=== PATIENT | male | born 1960 | race Caucasian/White ===

== ENCOUNTER 2017-01-31 14:47 | Inpatient (IN) | payer BC ==
[2017-02-04] MEDS ORDERED: HYDROmorphONE/DILAUDID 4 MG TAB PO PRN ×2 (16:00→16:01)
[2017-02-04] MEDS ORDERED: HYDROmorphONE/DILAUDID 2 MG TAB PO PRN (16:28)
[2017-02-04] MEDS: GABAPENTIN 300 MG CAP PO SCH ×2 (16:31→21:07)
[2017-02-04] MEDS: FUROSEMIDE 40 MG TAB PO SCH (16:34)
--- NOTE | 2017-02-04 17:17 | PDOREHIP ---
Admission [facility] - Admission - 3 Day Assessment Period Admission Date/Day 1: 02/04/17 Day 2: 02/05/17 Day 3: 02/06/17 - Active Diagnoses Comorbidities and Co-existing Conditions at Admission: 95478. DM (e.g. diabetic retinopathy, nephropathy, and neuropathy) - Skin Conditions Unhealed Pressure Ulcer (1 or more/Stage 1 or >)-Admission: 0. No
--- NOTE | 2017-02-04 17:44 | GHP ---
[f rep st] HISTORY AND PHYSICAL POST ADMISSION PHYSICIAN EVALUATION AND REHABILITATION TREATMENT PLAN. DATE OF ADMISSION: 02/04/2017 DATE OF EVALUATION: 02/04/2017. TIME OF EVALUATION: 1535. REFERRING FACILITY: [facility]. IMPAIRMENT GROUP: [id number]. DATE OF ONSET: 01/28/2017. REFERRING PHYSICIAN: Dr. Leyva. CONSULTING PHYSICIANS: He had a consultation with the cardiology service, Candy Banegas, nurse practitioner and Dr. Estrada, spare person. REHABILITATION DIAGNOSIS: Debility status post bilateral total knee amputation. ETIOLOGIC DIAGNOSIS: Bilateral knee replacements. DATE OF SURGERY: 01/28/2017. HISTORY OF PRESENT ILLNESS: This patient is a 56-year-old obese male, who had bilateral total knee replacements on 01/28/2017 due to severe osteoarthritis with varus alignment. His postoperative course was complicated by hypoxia, hypotension, fluid resuscitation, supraventricular tachycardia and nocturnal hypoxia consistent with obstructive sleep apnea. STUDIES: There was an EKG which showed sinus tachycardia with Q-waves in III and aVF, but no acute ST abnormalities. Telemetry showed sinus tachycardia with brief episodes of supraventricular tachycardia versus atrial tachycardia. Echocardiogram showed right heart enlargement. Chest x-ray was unremarkable. LAB STUDIES: BMP yesterday showed an elevated BUN at 31, a normal creatinine at 1.14, glucose was quite elevated at 258 but this was in the afternoon and likely not fasting. Otherwise, renal function and electrolytes were within normal limits. Magnesium in the serum was normal at 2.0. Hemoglobin and hematocrit showed mild anemia at 11.5 and 35.1. PRECAUTIONS: He is a fall risk. ACTIVE COMORBIDITIES: He has the active comorbidity of morbid obesity. PAST MEDICAL HISTORY: 1. Arthritis. 2. Back pain. 3. Testicular cancer in 1994. 4. Diabetes mellitus type 2. 5. Dyslipidemia. 6. Hypertension. PAST SURGICAL HISTORY: 1. He has had an appendectomy. 2. Hernia repair on the right. 3. Spinal surgery for a synovial cyst in 2010. 4. Testicular surgery for cancer. 5. Tonsillectomy and uvulectomy in 2006. PRE-HOSPITAL MEDICATIONS: 1. Ascorbic acid up to 7000 mg daily. 2. Benazepril 40 mg p.o. daily. 3. Clonidine 0.1 mg p.o. daily. 4. Green coffee solitario daily p.r.n. 5. Hydromorphone 8 mg p.o. q.4 hours p.r.n. 6. Hydromorphone extended release 16 mg p.o. twice daily. 7. Magnesium carbonate 1200 mg p.o. daily. 8. Metformin 1000 mg p.o. twice daily. 9. Vitamin B complex daily. 10. Atorvastatin 40 mg p.o. daily. 11. Clotrimazole 1% cream twice daily. 12. Furosemide 40 mg p.o. twice daily. 13. Gabapentin 300 mg p.o. three times daily. 14. Ibuprofen 800 mg three times daily. 15. Methocarbamol 750 mg q.8 hours p.r.n. 16. Metoprolol 50 mg p.o. twice daily. 17. Oxycodone 5 mg 1-3 tablets q.4 hours p.r.n. 18. Polyethylene glycol 17 g p.o. daily. 19. Rivaroxaban 10 mg p.o. daily. 20. Senna/docusate twice daily. ADMISSION MEDICATIONS: Are the same. ALLERGIES: There are no known drug allergies. FAMILY HISTORY: There were heart disease in his mother and father. SOCIAL HISTORY: He is . He lives with his . He has 2 adult children who are no longer in the house. 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 He is a nonsmoker but he chews tobacco. He does not use alcohol but has a history of alcohol abuse and dependence of approximately 20 years ago. REVIEW OF SYSTEMS: He says that his pain in his knees is approximately 7/10, which is better than it had been. He requests an increase in his p.r.n. hydromorphone from 8 mg to 10 mg. He feels he sleeps well. He is aware of his history of sleep apnea. He says that if he sleeps on his side, he does not snore and does not have apneas that he knows of, but since his surgery he has been unable to sleep on his side. Otherwise, he is without any respiratory complaints. He denies cough or dyspnea. His bowels are moving. He has a decent appetite. He has swelling in his legs. This has been ongoing since prior to his surgery. He has no chest pain. He does not have palpitations anymore and otherwise a 10-point review of systems is negative. PHYSICAL EXAMINATION: VITAL SIGNS: Vitals are not yet available in the chart. This morning, his oxygen saturation was at 90% on 5 L. Blood pressure was 137 /70, heart rate was 98, respiratory rate was 20, temperature was 36.6 degrees centigrade. His weight was listed twice from 01/28/2017. Once at 140 kg, and once at 156 kg for a body mass index with a higher weight is in the 40s. GENERAL: This is a well-nourished, well-developed, obese man lying in bed, dressed in street clothes, cooperative and in no acute distress. HEENT: Extraocular movements are intact. Pupils are equal, round, reactive to light. Mucous members are moist. Dentition is in good condition. He has a crowded airway, Mallampati class 3; however, he has no uvula or tonsils either in. NECK : Supple. HEART: There is a regular rate and rhythm with no murmurs, rubs, or gallops. LUNGS: Clear to auscultation bilaterally. ABDOMEN: Soft, nontender, nondistended with normoactive bowel sounds and no hepatosplenomegaly. EXTREMITIES: There is no cyanosis or clubbing. He has brawny discoloration to his shins. He has 2 to 3+ edema bilaterally to his lower extremities. Pedal pulses are palpable at trace. There is no calf tenderness. SKIN: He has well-approximated surgical incisions over both knees with alba. Incisions are clean, dry and intact with no dehiscence, no erythema and no purulence. NEUROLOGIC: He is alert and oriented x3. Cranial nerves 2-12 are grossly intact. There is no focal weakness. Sensation is intact to light touch. He is able to arise from seated independently, though he has to log roll to his side and then use considerable assistance of his arms , including using the bed rail to arise. He is able to subsequently stand independently. CURRENT LEVEL OF FUNCTION: Per the pre-admission screen. Regarding diet, feeding, and swallowing, e is on a regular diet. For grooming, he needed some assistance. For bathing, he needed assistance. For dressing, he needed assistance. Toileting was done with minimal assistance to contact guard for transfers. He had a Pyle catheter when he was assessed but no longer has that. Bed mobility required moderate assistance with use of side rails and head of bed elevated, and total assistance for his bilateral lower extremities, though his bed mobility has improved considerably since then. For transfers, he needed moderate assistance with voice cuing for hand placement. He was using a front-wheeled walker. Balance was accomplished with contact guard to min assist. Endurance was fair. Regarding gait, he required minimal assistance with partial step through bilaterally with a wide base of support using a front-wheeled walker for 80 feet. Communication and cognition were within normal limits. IMPRESSION: This is a 56-year-old man with morbid obesity complicated by diabetes mellitus, dyslipidemia, and hypertension, who had severe degenerative joint disease bilaterally in his knees and underwent bilateral total knee replacements on 01/28/2017. His hospital course was complicated by pain, hypotension, fluid overload, hypoxia and supraventricular tachycardia. Evaluation revealed an enlarged right heart. The surgery itself was uncomplicated and he has subsequently stabilized regarding his cardiovascular status and is appropriate for inpatient rehabilitation, with considerable debility due to his bilateral knee replacements complicated by obesity. He is appropriate for inpatient rehabilitation where he will benefit from nursing care regarding fall risk, wound healing and skin integrity, bowel and bladder, medication administration and medication education. He will have physical and occupational therapy to optimize his mobility and activities of daily living. He will benefit from the care of physician regarding comorbid conditions including hypoxia, supraventricular tachycardia, diabetes mellitus type 2, hypertension and bilateral lower extremity edema. Additionally, he needs DVT prophylaxis and pain management. His goal is to complete rehabilitation and then return home with his and supportive services as needed. He intends to return to work which necessitates stair climbing. For a safe discharge, it is anticipated that he will be independent with bed mobility and grooming, modified independence for transfers , dressing, bathing, and ambulation with the at least restrictive device. He likely will require assistance for household management and shopping. He will receive therapy with physical therapy and occupational therapy for 90 minutes per day per discipline on 5-7 days per week. His expected duration of stay is 5-7 days. It is anticipated that upon discharge he will continue to benefit from outpatient therapies including OT and PT. PLAN: 1. Debility, status post bilateral total knee arthroplasties complicated by obesity. Physical therapy and occupational therapy to optimize mobility and activities of daily living. 2. Hypoxia. Continue oxygen. Emphasize incentive spirometry. Consider further evaluation depending on how he progresses. 3. Obstructive sleep apnea. It is not unlikely that he would not be obstructing if he could sleep on his side. In the interim, he will bring his CPAP in which he has not used for a number of years, and we will have respiratory therapy meet with him to see if it can be made operational. 4. Supraventricular tachycardia, hypothesized that it was related to episodes of sleep apnea. He will have oxygen at night. He will be observed for any cardiac symptoms. No further workup will be done at present. 5. Fluid overload and possible right heart failure. Continue furosemide. Weight daily and monitoring regarding edema and cardiac function. Edema may also be partially due to venous insufficiency. 6. Hypertension. Continue his current medication with clonidine 0.1 mg twice daily, benazepril 40 mg daily, and metoprolol 50 mg twice daily. 7. Pain management. He requests an increase in his hydromorphone from 8 mg p.o. q.4 hours p.r.n. to 10 mg p.o. q.4 hours p.r.n., and this has been ordered. Continue hydromorphone extended release 16 mg twice daily. 8. Diabetes mellitus type 2. Continue metformin 1000 mg p.o. twice daily. Consider checking fasting glucose. The 1 glucose from the hospital which was elevated was in the afternoon and was likely not fasting. 9. Dyslipidemia continue atorvastatin. 10. Deep venous thrombosis prophylaxis. Rivaroxaban has been ordered at the hospital. 11. Followup. He is to see orthopedic surgeon, Dr. Leyva on 02/10/2017 where alba will be assessed for removal and it will be up to Dr. Leyva regarding duration of rivaroxaban. /[id number]/MODL MTDD
[2017-02-04] MEDS: metFORMIN HCL 500 MG TAB PO SCH (18:33)
[2017-02-04] MEDS ORDERED: NALOXONE HCL 0.4 MG/ML INJ IVP PRN (19:44)
[2017-02-04] MEDS: METHOCARBAMOL 750 MG TAB PO PRN (19:45)
[2017-02-04] MEDS ORDERED: HYDROMORPHONE HCL 16 MG PO SCH (21:00)
[2017-02-04] MEDS: SENNOSIDES/DOCUSATE SODIUM TAB PO SCH (21:06)
[2017-02-04] MEDS: METOPROLOL TARTRATE 50 MG TAB PO SCH (21:06)
[2017-02-04] MEDS: HYDROmorphONE/DILAUDID 2 MG TAB PO PRN (21:16)
[2017-02-04] MEDS: CLOTRIMAZOLE 1% 15 GM CRTUBE TP SCH (21:18)
[2017-02-05] MEDS: HYDROmorphONE/DILAUDID 2 MG TAB PO PRN ×5 (01:03→22:02)
[2017-02-05] MEDS: METHOCARBAMOL 750 MG TAB PO PRN ×2 (03:41→20:53)
[2017-02-05] MEDS ORDERED: ASCORBIC ACID 500 MG TAB PO SCH (09:00)
[2017-02-05] MEDS ORDERED: MAGNESIUM CARBONATE PO SCH (09:00)
[2017-02-05] MEDS: ASCORBIC ACID 500 MG TAB PO SCH (09:17)
[2017-02-05] MEDS: ATORVASTATIN CALCIUM 40 MG TAB PO SCH (09:17)
[2017-02-05] MEDS: BENAZEPRIL HCL 20 MG TAB PO SCH (09:17)
[2017-02-05] MEDS: CLOTRIMAZOLE 1% 15 GM CRTUBE TP SCH ×2 (09:18→20:56)
[2017-02-05] MEDS: MAGNESIUM OXIDE 400 MG TAB PO SCH (09:19)
[2017-02-05] MEDS: HYDROMORPHONE HCL 16 MG PO SCH ×2 (09:19→20:52)
[2017-02-05] MEDS: FUROSEMIDE 40 MG TAB PO SCH ×2 (09:19→14:40)
[2017-02-05] MEDS: GABAPENTIN 300 MG CAP PO SCH ×3 (09:19→20:53)
[2017-02-05] MEDS: POLYETHYLENE GLYCOL 3350 17 GM PKT PO SCH (09:20)
[2017-02-05] MEDS: METOPROLOL TARTRATE 50 MG TAB PO SCH (09:20)
[2017-02-05] MEDS: metFORMIN HCL 500 MG TAB PO SCH ×2 (09:20→17:52)
[2017-02-05] MEDS: RIVAROXABAN 10 MG TAB PO SCH (09:21)
[2017-02-05] MEDS: SENNOSIDES/DOCUSATE SODIUM TAB PO SCH ×2 (09:21→20:53)
[2017-02-05] MEDS ORDERED: METOPROLOL TARTRATE 50 MG TAB PO SCH (11:09)
--- NOTE | 2017-02-05 11:16 | HOSPPROG ---
Hospitalist Progress Note Assessment/Plan: 56-year-old male status post bilateral knee replacements due to severe osteo arthritis * status post bilateral knee replacements * Getting PT and OT * postoperative SVT * I suspect the beta-laverne was placed due to this. * He does have enlarged right-sided heart and probably pulmonary hypertension due to chronic obstructive sleep apnea * However the side effects of beta laverne seems would interfere with rehab progress due to severe fatigue * He had been stable prior to surgery which probably precipitated the SVT * Will thus decrease beta-laverne to minimal dosage and could taper off in the next few days * history of hypertension * Continue benazepril and clonidine * obstructive sleep apnea * Hopefully will be able to use CPAP tonight * Respiratory therapy will look at his machine * chronic pain * On fairly high doses of narcotics at baseline * Probably contributing to nocturnal hypoxia * history of type 2 diabetes * Continue metformin * DVT prophylaxis * He is high risk * On Xarelto Subjective: Frustrated that he is on a beta-laverne. He feels quite tired when he has taken beta blockers in the past. His legs do feel more swollen than normal. He does not want to increase Lasix. Did not use CPAP last night. Will get CPAP machine reviewed by respiratory today Objective: Vital Signs Temp Pulse Resp BP Pulse Ox 37.0 C 106 H 20 125/89 H 97 02/04/17 20:00 02/05/17 09:20 02/05/17 06:47 02/05/17 09:20 02/05/17 06:47 02/04/17 02/05/17 02/06/17 05:59 05:59 05:59 Intake Total 1200 Output Total 1550 Balance -350 - Physical Exam Constitutional: no apparent distress, appears nourished, not in pain Eyes: anicteric sclera, EOMI Ears, Nose, Mouth, Throat: hearing normal Cardiovascular: regular rate and rhythym, edema (2+) Respiratory: no respiratory distress, no rales or rhonchi, clear to auscultation Skin: other (Chronic venous stasis changes lower leg) Neurologic: AAOx3 Psychiatric: interacting appropriately, not anxious, not encephalopathic, thought process linear ICD10 Worksheet Patient Problems: Problems Problem Status Onset ROBERTO (obstructive sleep apnea) Acute S/P total knee arthroplasty Acute
[2017-02-05] MEDS: METOPROLOL TARTRATE 25 MG TAB PO SCH (20:53)
[2017-02-06] MEDS: HYDROmorphONE/DILAUDID 2 MG TAB PO PRN ×5 (01:58→22:33)
[2017-02-06] MEDS: METHOCARBAMOL 750 MG TAB PO PRN ×3 (05:03→22:31)
[2017-02-06] MEDS: metFORMIN HCL 500 MG TAB PO SCH ×2 (08:32→17:09)
[2017-02-06] MEDS: ASCORBIC ACID 500 MG TAB PO SCH (08:33)
[2017-02-06] MEDS: ATORVASTATIN CALCIUM 40 MG TAB PO SCH (08:33)
[2017-02-06] MEDS: BENAZEPRIL HCL 20 MG TAB PO SCH (08:34)
[2017-02-06] MEDS: FUROSEMIDE 40 MG TAB PO SCH ×2 (08:35→14:27)
[2017-02-06] MEDS: GABAPENTIN 300 MG CAP PO SCH ×3 (08:35→22:21)
[2017-02-06] MEDS: CLOTRIMAZOLE 1% 15 GM CRTUBE TP SCH ×3 (08:35→22:24)
[2017-02-06] MEDS: MAGNESIUM OXIDE 400 MG TAB PO SCH (08:36)
[2017-02-06] MEDS: METOPROLOL TARTRATE 25 MG TAB PO SCH ×2 (08:36→22:22)
[2017-02-06] MEDS: SENNOSIDES/DOCUSATE SODIUM TAB PO SCH ×2 (08:37→22:21)
[2017-02-06] MEDS: RIVAROXABAN 10 MG TAB PO SCH (08:37)
[2017-02-06] MEDS: POLYETHYLENE GLYCOL 3350 17 GM PKT PO SCH (08:37)
[2017-02-06] MEDS: HYDROMORPHONE HCL 16 MG PO SCH ×2 (08:46→22:20)
--- NOTE | 2017-02-06 13:58 | SOAPPROG ---
SOAP Progress Note Assessment/Plan: 56-year-old male status post bilateral knee replacements due to severe osteo arthritis * status post bilateral knee replacements * Getting PT and OT * postoperative SVT * I suspect the beta-laverne was placed due to this. * He does have enlarged right-sided heart and probably pulmonary hypertension due to chronic obstructive sleep apnea * However the side effects of beta laverne seems would interfere with rehab progress due to severe fatigue * He had been stable prior to surgery which probably precipitated the SVT * Decrease metoprolol to 12.5 mg twice daily from 50 mg twice daily on 02/05 - continue with lower dose and watch heart rate. Although he does have slight tachycardia this is not SVT * history of hypertension * Will decrease bezapril a little bit as his blood pressures on the low side and he feels like it is making more fatigued * Continue clonidine * obstructive sleep apnea * Hopefully will be able to use CPAP tonight * Respiratory therapy will look at his machine to perhaps decrease the pressure since that sing was determined before he had tonsillar in uvula surgery * chronic pain * On fairly high doses of narcotics at baseline * Probably contributing to nocturnal hypoxia * history of type 2 diabetes * Continue metformin * DVT prophylaxis * He is high risk * On Xarelto 02/06/17 13:56 Subjective: Was unable to tolerate CPAP last night for more than a couple hours. Does feel tired but no other new complaints Objective: Vital Signs Temp Pulse Resp BP Pulse Ox 37.2 C 94 16 118/68 2 L 02/06/17 09:00 02/06/17 09:00 02/06/17 09:00 02/06/17 09:00 02/06/17 09:00 02/05/17 02/06/17 02/07/17 05:59 05:59 05:59 Intake Total 1200 3670 520 Output Total 1550 1600 Balance -350 2070 520 Physical Exam - Physical Exam General Appearance: WD/WN, alert, no apparent distress EENT: PERRL/EOMI Respiratory: lungs clear Cardiac/Chest: regular rate, rhythm, tachycardia (Slight) Extremities: other (Wrap legs) Neuro/Psych: alert, normal mood/affect, oriented x 3 ICD10 Worksheet Patient Problems: Problems Problem Status Onset ROBERTO (obstructive sleep apnea) Acute S/P total knee arthroplasty Acute
[2017-02-07] MEDS: POLYETHYLENE GLYCOL 3350 17 GM PKT PO SCH (07:48)
[2017-02-07] MEDS: ASCORBIC ACID 500 MG TAB PO SCH (07:49)
[2017-02-07] MEDS: MAGNESIUM OXIDE 400 MG TAB PO SCH (07:49)
[2017-02-07] MEDS: RIVAROXABAN 10 MG TAB PO SCH (07:49)
[2017-02-07] MEDS: SENNOSIDES/DOCUSATE SODIUM TAB PO SCH ×2 (07:49→22:03)
[2017-02-07] MEDS: GABAPENTIN 300 MG CAP PO SCH ×3 (07:50→22:03)
[2017-02-07] MEDS: metFORMIN HCL 500 MG TAB PO SCH ×2 (07:50→16:59)
[2017-02-07] MEDS: ATORVASTATIN CALCIUM 40 MG TAB PO SCH (07:50)
[2017-02-07] MEDS: BENAZEPRIL HCL 20 MG TAB PO SCH (07:50)
[2017-02-07] MEDS: METOPROLOL TARTRATE 25 MG TAB PO SCH ×2 (07:50→22:24)
[2017-02-07] MEDS: FUROSEMIDE 40 MG TAB PO SCH ×2 (07:50→16:04)
[2017-02-07] MEDS: HYDROMORPHONE HCL 16 MG PO SCH ×2 (08:13→22:02)
[2017-02-07] MEDS: HYDROmorphONE/DILAUDID 2 MG TAB PO PRN ×3 (08:14→22:04)
[2017-02-07 10:01] LABS: ANION GAP 10 mEq/L (8-16); CALCIUM 9.4 mg/dL (8.5-10.4); CARBON DIOXIDE 31 mEq/l (22-31); CHLORIDE 94 mEq/L (97-110); GLOMERULAR FILTRATION RATE > 60; GLUCOSE 213 mg/dL (70-100); POTASSIUM 5.5 mEq/L (3.5-5.2); SODIUM 135 mEq/L (134-144)
--- NOTE | 2017-02-07 11:12 | SOAPPROG ---
SOAP Progress Note Assessment/Plan: Assessment: 56-year-old male status post bilateral knee replacements due to severe osteo arthritis * status post bilateral knee replacements * ADVISED PATIENT AND NURSING TO UNWRAP LEGS 3-4 TIMES PER DAY TO ALLOW PATIENT TO FLEX KNEE TO 100 DEGREES. Brenda asked his physical THERAPIST TO CLEAR HIM TO STAND BEDSIDE FOR 5-10 MINUTES PER HOUR IF SHE FEELS HE IS READY, WHICH HE APPEARS TO BE. * postoperative SVT * I suspect the beta-laverne was placed due to this. * He does have enlarged right-sided heart and probably pulmonary hypertension due to chronic obstructive sleep apnea * However the side effects of beta laverne seems would interfere with rehab progress due to severe fatigue * He had been stable prior to surgery which probably precipitated the SVT * Decrease metoprolol to 12.5 mg twice daily from 50 mg twice daily on 02/05 - continue with lower dose and watch heart rate. Although he does have slight tachycardia this is not SVT * history of hypertension * BP this am 113/84- WOULD CONSIDER D/CING METOPROLOL ON THURSDAY IF DR LANDAVERDE AGREES * Continue clonidine * obstructive sleep apnea * Hopefully will be able to use CPAP tonight * Respiratory therapy will look at his machine to perhaps decrease the pressure since that sing was determined before he had tonsillar in uvula surgery * chronic pain * On fairly high doses of narcotics at baseline * Probably contributing to nocturnal hypoxia * history of type 2 diabetes- BLOOD SUGARS TRENDING SLIGHTLY ELEVATED--DIETARY TO D/W PATIENT * Continue metformin * DVT prophylaxis- * On Xarelto Plan: 02/07/17 11:05 Subjective: NO C/O THIS AM Objective: Vital Signs Temp Pulse Resp BP Pulse Ox 36.9 C 90 16 113/84 H 94 02/07/17 06:42 02/07/17 06:42 02/07/17 06:42 02/07/17 06:42 02/07/17 06:42 Laboratory Results 02/07/17 06:30 02/06/17 02/07/17 02/08/17 05:59 05:59 05:59 Intake Total 3670 2700 Output Total 1600 Balance 2070 2700 Physical Exam - Physical Exam General Appearance: WD/WN, alert, no apparent distress Respiratory: lungs clear Cardiac/Chest: regular rate, rhythm, other (+1 PITTING EDEMA BOTH LOWER EXTREMITIES) Abdomen: normal bowel sounds, non-tender, soft Skin: normal color, warm/dry Extremities: other (RIGHT AND LEFT KNEE FLEXION TO 85 DEGREES, BUT MOTION IS LIMITED BY MONALISA WRAPS), No calf tenderness, No Bisi's sign ICD10 Worksheet Patient Problems: Problems Problem Status Onset ROBERTO (obstructive sleep apnea) Acute S/P total knee arthroplasty Acute
[2017-02-07] MEDS: CLOTRIMAZOLE 1% 15 GM CRTUBE TP SCH ×2 (12:40→22:26)
[2017-02-07] MEDS: METHOCARBAMOL 750 MG TAB PO PRN ×2 (16:03→23:54)
[2017-02-08] MEDS: HYDROmorphONE/DILAUDID 2 MG TAB PO PRN ×4 (04:25→19:42)
[2017-02-08] MEDS: metFORMIN HCL 500 MG TAB PO SCH ×2 (08:06→18:28)
[2017-02-08] MEDS: BENAZEPRIL HCL 20 MG TAB PO SCH (08:06)
[2017-02-08] MEDS: RIVAROXABAN 10 MG TAB PO SCH (08:06)
[2017-02-08] MEDS: FUROSEMIDE 40 MG TAB PO SCH ×2 (08:06→15:44)
[2017-02-08] MEDS: GABAPENTIN 300 MG CAP PO SCH ×3 (08:06→21:59)
[2017-02-08] MEDS: ATORVASTATIN CALCIUM 40 MG TAB PO SCH (08:07)
[2017-02-08] MEDS: MAGNESIUM OXIDE 400 MG TAB PO SCH (08:07)
[2017-02-08] MEDS: METOPROLOL TARTRATE 25 MG TAB PO SCH ×2 (08:07→21:58)
[2017-02-08] MEDS: ASCORBIC ACID 500 MG TAB PO SCH (08:07)
[2017-02-08] MEDS: SENNOSIDES/DOCUSATE SODIUM TAB PO SCH ×2 (08:07→21:58)
[2017-02-08] MEDS: POLYETHYLENE GLYCOL 3350 17 GM PKT PO SCH (08:08)
[2017-02-08] MEDS: CLOTRIMAZOLE 1% 15 GM CRTUBE TP SCH ×2 (08:08→23:42)
[2017-02-08] MEDS: METHOCARBAMOL 750 MG TAB PO PRN ×2 (08:10→15:44)
[2017-02-08 08:30] LABS: ANION GAP 9 mEq/L (8-16); CALCIUM 9.3 mg/dL (8.5-10.4); CARBON DIOXIDE 28 mEq/l (22-31); CHLORIDE 96 mEq/L (97-110); CREATININE 0.9 mg/dL (0.7-1.3); GLOMERULAR FILTRATION RATE > 60; GLUCOSE 239 mg/dL (70-100); POTASSIUM 5.3 mEq/L (3.5-5.2); SODIUM 133 mEq/L (134-144)
--- NOTE | 2017-02-08 10:08 | SOAPPROG ---
SOAP Progress Note Assessment/Plan: Assessment: 56-year-old male status post bilateral knee replacements due to severe osteo arthritis * status post bilateral knee replacements * ADVISED PATIENT AND NURSING TO UNWRAP LEGS 3-4 TIMES PER DAY TO ALLOW PATIENT TO FLEX KNEE TO 100 DEGREES. He has increased his standing times bedside * postoperative SVT * Resting pulse this am was 100. On metoprolol 12.5 bid * history of hypertension * Continue clonidine * obstructive sleep apnea * Hopefully will be able to use CPAP tonight * Respiratory therapy will look at his machine to perhaps decrease the pressure since that sing was determined before he had tonsillar in uvula surgery * chronic pain * On fairly high doses of narcotics at baseline- RECOMMEND NEUROPYSCH CONSULT TO ADDRESS OPIOID DEPENDENCE * Probably contributing to nocturnal hypoxia * history of type 2 diabetes- BLOOD SUGARS TRENDING SLIGHTLY ELEVATED--DIETARY TO D/W PATIENT * Continue metformin * DVT prophylaxis- * On Xarelto Plan: 02/07/17 11:05 02/08/17 10:02 Subjective: No c/o this am Objective: Vital Signs Temp Pulse Resp BP Pulse Ox 37.1 C 117 H 16 132/72 H 94 02/07/17 18:20 02/07/17 22:24 02/07/17 18:20 02/07/17 22:24 02/07/17 22:16 Laboratory Results 02/08/17 06:00 02/07/17 02/08/17 02/09/17 05:59 05:59 05:59 Intake Total 2700 2800 Output Total 1650 Balance 2700 1150 Physical Exam - Physical Exam General Appearance: WD/WN, alert, no apparent distress Respiratory: lungs clear, normal breath sounds Cardiac/Chest: edema (+1-2 pitting), No JVD, No diastolic murmur, No systolic murmur Abdomen: non-tender, soft Skin: other (chronic stasis edema changes. Knee incisions look good without erythema or drainage) Extremities: No Bisi's sign ICD10 Worksheet Patient Problems: Problems Problem Status Onset ROBERTO (obstructive sleep apnea) Acute S/P total knee arthroplasty Acute
[2017-02-08] MEDS: HYDROMORPHONE HCL 16 MG PO SCH ×2 (10:52→22:00)
[2017-02-09] MEDS: METHOCARBAMOL 750 MG TAB PO PRN ×3 (00:23→17:15)
[2017-02-09] MEDS: HYDROmorphONE/DILAUDID 2 MG TAB PO PRN ×6 (02:31→21:23)
[2017-02-09] MEDS: POLYETHYLENE GLYCOL 3350 17 GM PKT PO SCH (09:00)
[2017-02-09] MEDS: ASCORBIC ACID 500 MG TAB PO SCH (09:18)
[2017-02-09] MEDS: BENAZEPRIL HCL 20 MG TAB PO SCH (09:19)
[2017-02-09] MEDS: ATORVASTATIN CALCIUM 40 MG TAB PO SCH (09:19)
[2017-02-09] MEDS: FUROSEMIDE 40 MG TAB PO SCH (09:23)
[2017-02-09] MEDS: GABAPENTIN 300 MG CAP PO SCH ×3 (09:23→20:49)
[2017-02-09] MEDS: CLOTRIMAZOLE 1% 15 GM CRTUBE TP SCH ×2 (09:23→23:50)
[2017-02-09] MEDS: HYDROMORPHONE HCL 16 MG PO SCH ×2 (09:24→21:22)
[2017-02-09] MEDS: MAGNESIUM OXIDE 400 MG TAB PO SCH (09:24)
[2017-02-09] MEDS: METOPROLOL TARTRATE 25 MG TAB PO SCH ×2 (09:25→21:05)
[2017-02-09] MEDS: RIVAROXABAN 10 MG TAB PO SCH (09:25)
[2017-02-09] MEDS: metFORMIN HCL 500 MG TAB PO SCH ×2 (09:25→17:13)
[2017-02-09] MEDS: SENNOSIDES/DOCUSATE SODIUM TAB PO SCH ×2 (09:25→21:29)
--- NOTE | 2017-02-09 09:43 | SOAPPROG ---
SOAP Progress Note Assessment/Plan: Assessment: 56-year-old morbidly obese man status post bilateral knee replacements, with untreated sleep apnea and right heart strain: * Debility, status post bilateral total knee arthroplasties complicated by obesity. Initial functional independence measure 89 on 02/09/2017. He has ambulated 80-150 feet with front wheeled walker needing much as 3 L of oxygen. Standby assist for transfers and bed mobility low activity tolerance and shortness of breath with walking. Occasional loss of balance backwards. Standby assist for toileting and showering. Continue Physical therapy and occupational therapy to optimize mobility and activities of daily living. * Hypoxia. Continue oxygen PRN hospital evaluation included CT angiogram with pulmonary embolus ruled out and echocardiogram with enlarged right heart. Has orthostatic hypotension so not a candidate for diuresis at present. Emphasize incentive spirometry. Consider further evaluation depending on how he progresses. * Obstructive sleep apnea. Respiratory therapy is continue efforts to find a CPAP which she can tolerate. * Hypertension. Continue clonidine 0.1 mg twice daily, benazepril 40 mg daily; metoprolol has been tapered from 50 mg twice daily to 12.5 mg twice daily * Orthostatic hypotension. Nursing and therapy staff to continue working with him on orthostatic tolerance. Consider taper of benazepril. * Fluid overload and possible right heart failure. With orthostatic hypotension , will decrease furosemide from 40 mg BID to 40 mg QAM and 20 mg QPM starting .. Continue weight daily and monitoring regarding edema and cardiac function. Edema may also be partially due to venous insufficiency. * Supraventricular tachycardia, hypothesized that it was related to episodes of sleep apnea. He will have oxygen at night. He will be observed for any cardiac symptoms. No further workup will be done at present. * Pain management. Per his request further increase in hydromorphone from 10 mg to 12 mg as maximal dose starting 02/09/2017. Continue hydromorphone extended release 16 mg twice daily. * Diabetes mellitus type 2. Continue metformin 1000 mg p.o. twice daily. Blood sugar is elevated. Discussed with patient: Will start exenatide if insurance will cover. * Dyslipidemia continue atorvastatin. * Deep venous thrombosis prophylaxis. Rivaroxaban has been ordered at the hospital. * Followup. He is to see orthopedic surgeon, Dr. Leyva on 02/10/2017 where alba will be assessed for removal and it will be up to Dr. Leyva regarding duration of rivaroxaban. Attended staffing, 15 min. Discussed with nursing, dietitian, OT, PT. Lives at home with his and plans to return to work. Goal to discharge with modified independence continuing to use assistive device most likely front wheeled walker. Discharge date set for 02/13/2017. 02/09/17 13:32 Subjective: Complains of poor sleep. Can tolerate CPAP for up to 2 0.5 hours at the most. Nurse reports that respiratory therapist bambi ROM be commented that the pressure should be set lower but he didn't know how to adjust the pressure on that CPAP machine. Patient reports that this morning for the 1st time he was able to lie on his side within the with a pillow between his knees and got a few hours of sleep that way. He has bilateral knee pain and would like a higher dose of as needed hydromorphone. No fevers, chills, dyspnea; occasional cough. Bowels moving. No urinary issues. Objective: Vital Signs Temp Pulse Resp BP Pulse Ox 37.6 C 102 H 20 138/64 H 93 02/09/17 06:29 02/09/17 09:25 02/09/17 06:29 02/09/17 09:25 02/09/17 06:29 Laboratory Results 02/08/17 06:00 02/08/17 02/09/17 02/10/17 05:59 05:59 05:59 Intake Total 2800 1500 Output Total 1650 2000 325 Balance 1150 500 325 - Time Spent With Patient Time Spent With Patient: Greater than 35 minutes floor time today, including more than 50% of time in coordination of care during staffing meeting, and counseling patient. Physical Exam - Physical Exam General Appearance: WD/WN, alert, no apparent distress, obese Respiratory: normal breath sounds, No crackles, No rhonchi, No wheezing Cardiac/Chest: regular rate, rhythm, edema (2+ bilaterally pretibial edema) Skin: normal color, warm/dry, other (Knee incisions well approximated, no erythema or purulence) Neuro/Psych: no motor/sensory deficits, alert, normal mood/affect, oriented x 3 , abnormal gait (Step 2 pattern with longer stride with left leg swing) ICD10 Worksheet Patient Problems: Problems Problem Status Onset ROBERTO (obstructive sleep apnea) Acute S/P total knee arthroplasty Acute
[2017-02-09] MEDS: FUROSEMIDE 20 MG TAB PO SCH (15:11)
[2017-02-10] MEDS: METHOCARBAMOL 750 MG TAB PO PRN ×3 (02:28→20:56)
[2017-02-10] MEDS: HYDROmorphONE/DILAUDID 2 MG TAB PO PRN ×5 (02:28→20:56)
[2017-02-10] MEDS: ASCORBIC ACID 500 MG TAB PO SCH (08:20)
[2017-02-10] MEDS: ATORVASTATIN CALCIUM 40 MG TAB PO SCH (08:20)
[2017-02-10] MEDS: BENAZEPRIL HCL 20 MG TAB PO SCH (08:20)
[2017-02-10] MEDS: FUROSEMIDE 40 MG TAB PO SCH (08:21)
[2017-02-10] MEDS: GABAPENTIN 300 MG CAP PO SCH ×3 (08:21→21:13)
[2017-02-10] MEDS: MAGNESIUM OXIDE 400 MG TAB PO SCH (08:22)
[2017-02-10] MEDS: metFORMIN HCL 500 MG TAB PO SCH ×2 (08:22→17:37)
[2017-02-10] MEDS: HYDROMORPHONE HCL 16 MG PO SCH ×2 (08:22→21:11)
[2017-02-10] MEDS: METOPROLOL TARTRATE 25 MG TAB PO SCH ×2 (08:22→21:12)
[2017-02-10] MEDS: POLYETHYLENE GLYCOL 3350 17 GM PKT PO SCH ×2 (08:23→10:15)
[2017-02-10] MEDS: RIVAROXABAN 10 MG TAB PO SCH (08:23)
[2017-02-10] MEDS: SENNOSIDES/DOCUSATE SODIUM TAB PO SCH ×2 (08:23→21:53)
[2017-02-10] MEDS: CLOTRIMAZOLE 1% 15 GM CRTUBE TP SCH ×2 (09:19→21:52)
--- NOTE | 2017-02-10 11:30 | SOAPPROG ---
SOAP Progress Note Assessment/Plan: Assessment: 56-year-old morbidly obese man status post bilateral knee replacements, with untreated sleep apnea and right heart strain: * Debility, status post bilateral total knee arthroplasties complicated by obesity. Initial functional independence measure 89 on 02/09/2017. He has ambulated 80-150 feet with front wheeled walker needing much as 3 L of oxygen. Standby assist for transfers and bed mobility low activity tolerance and shortness of breath with walking. Occasional loss of balance backwards. Standby assist for toileting and showering. Continue Physical therapy and occupational therapy to optimize mobility and activities of daily living. * Hypoxia. Continue oxygen PRN. Hospital evaluation included CT angiogram with pulmonary embolus ruled out and echocardiogram with enlarged right heart. Has orthostatic hypotension so not a candidate for more diuresis at present. Emphasize incentive spirometry. Consider further evaluation depending on how he progresses. * Obstructive sleep apnea. Tolerating replaced CPAP last night, 02/09/2017. Encouraged continued use. * Hypertension. Continue clonidine 0.1 mg twice daily, benazepril 20 mg daily; metoprolol has been tapered from 50 mg twice daily to 12.5 mg twice daily * Orthostatic hypotension. Nursing and therapy staff to continue working with him on orthostatic tolerance. * Fluid overload and possible right heart failure. With orthostatic hypotension , will decrease furosemide from 40 mg BID to 40 mg QAM and 20 mg QPM starting .. Continue weight daily and monitoring regarding edema and cardiac function. Edema may also be partially due to venous insufficiency. Expect gradual benefit from use of CPAP * Hyperkalemia, hyponatremia. Unclear etiology with intact renal function. Repeat BMP in the morning as well as urinary urine and sodium osmolalities and urine sodium and potassium. Check fasting cortisol as well especially given orthostatic hypotension. * Supraventricular tachycardia, hypothesized that it was related to episodes of sleep apnea. He will have oxygen at night. He will be observed for any cardiac symptoms. No further workup will be done at present. * Pain management. Per his request further increase in hydromorphone from 10 mg to 12 mg as maximal dose starting 02/09/2017. Continue hydromorphone extended release 16 mg twice daily. * Diabetes mellitus type 2. Continue metformin 1000 mg p.o. twice daily. Blood sugar is elevated. Discussed with patient: Will start exenatide if insurance will cover. * Dyslipidemia continue atorvastatin. * Deep venous thrombosis prophylaxis. Rivaroxaban has been ordered at the hospital. * Followup. He is to see orthopedic surgeon, Dr. Leyva on 02/10/2017 where alba will be assessed for removal and it will be up to Dr. Leyva regarding duration of rivaroxaban. Lives at home with his and plans to return to work. Goal to discharge with modified independence continuing to use assistive device most likely front wheeled walker. Discharge date set for 02/13/2017. 02/10/17 11:31 Subjective: Upset over planned discharge date of 02 13. He would like to stay until 2016. Slept better with replaced CPAP last night. Not in pain, occasional cough, no dyspnea at rest. Staff still notes desaturation with activity and decreased activity tolerance. Objective: Vital Signs Temp Pulse Resp BP Pulse Ox 37.1 C 112 H 14 104/68 90 L 02/10/17 08:00 02/10/17 08:22 02/10/17 08:00 02/10/17 10:54 02/10/17 09:10 Laboratory Results 02/08/17 06:00 02/09/17 02/10/17 02/11/17 05:59 05:59 05:59 Intake Total 1500 3929 1236 Output Total 1999 2024 400 Balance -500 1904 836 Physical Exam - Physical Exam General Appearance: WD/WN, alert, no apparent distress, obese Respiratory: normal breath sounds, No crackles, No rhonchi, No wheezing Cardiac/Chest: edema (1+ bilateral lower extremities) Skin: normal color, warm/dry, other (Knee incisions mostly well approximated. [place] present. Minimal erythema which blanches and is nontender around the proximal alba especially on left. Eschar approximately 2-3 mm by approximately 1 cm on the left sided incision over the tibial tuberosity and minimal similar eschar on right over the tibial tuberosity.) Neuro/Psych: no motor/sensory deficits, alert, normal mood/affect, oriented x 3 ICD10 Worksheet Patient Problems: Problems Problem Status Onset ROEBRTO (obstructive sleep apnea) Acute S/P total knee arthroplasty Acute
[2017-02-10] MEDS: FUROSEMIDE 20 MG TAB PO SCH (15:08)
[2017-02-11] MEDS: HYDROmorphONE/DILAUDID 2 MG TAB PO PRN ×6 (01:35→21:44)
[2017-02-11] MEDS: METHOCARBAMOL 750 MG TAB PO PRN ×2 (05:56→17:14)
[2017-02-11 09:07] LABS: MEAN CELL HEMOGLOBIN 30.4 pg (27.9-34.1); MEAN CELL HEMOGLOBIN CONCENTR. 32.4 g/dL (32.4-36.7); MEAN CELL VOLUME 93.9 fL (81.5-99.8); RED BLOOD CELL COUNT 3.62 10^6/uL (4.40-6.38); RED CELL DISTRIBUTION WIDTH 13.6 % (11.5-15.2)
[2017-02-11 09:28] LABS: ANION GAP 11 mEq/L (8-16); CALCIUM 9.2 mg/dL (8.5-10.4); CARBON DIOXIDE 27 mEq/l (22-31); CHLORIDE 94 mEq/L (97-110); CREATININE 0.9 mg/dL (0.7-1.3); GLOMERULAR FILTRATION RATE > 60; GLUCOSE 253 mg/dL (70-100); POTASSIUM 5.3 mEq/L (3.5-5.2); SODIUM 132 mEq/L (134-144)
[2017-02-11 09:51] LABS: RANDOM URINE POTASSIUM 35.5 mEq/L (0.5-35.0)
[2017-02-11] MEDS: metFORMIN HCL 500 MG TAB PO SCH ×2 (09:59→17:14)
[2017-02-11] MEDS: ATORVASTATIN CALCIUM 40 MG TAB PO SCH (10:00)
[2017-02-11] MEDS: BENAZEPRIL HCL 20 MG TAB PO SCH (10:00)
[2017-02-11] MEDS: ASCORBIC ACID 500 MG TAB PO SCH (10:00)
[2017-02-11] MEDS: HYDROMORPHONE HCL 16 MG PO SCH ×2 (10:01→20:50)
[2017-02-11] MEDS: GABAPENTIN 300 MG CAP PO SCH ×3 (10:01→20:51)
[2017-02-11] MEDS: FUROSEMIDE 40 MG TAB PO SCH (10:01)
[2017-02-11] MEDS: MAGNESIUM OXIDE 400 MG TAB PO SCH (10:02)
[2017-02-11] MEDS: METOPROLOL TARTRATE 25 MG TAB PO SCH ×2 (10:02→20:50)
[2017-02-11] MEDS: POLYETHYLENE GLYCOL 3350 17 GM PKT PO SCH (10:03)
[2017-02-11] MEDS: SENNOSIDES/DOCUSATE SODIUM TAB PO SCH ×2 (10:03→20:51)
[2017-02-11] MEDS: RIVAROXABAN 10 MG TAB PO SCH (10:03)
[2017-02-11] MEDS: CLOTRIMAZOLE 1% 15 GM CRTUBE TP SCH ×2 (10:15→20:55)
[2017-02-11] MEDS: FUROSEMIDE 20 MG TAB PO SCH (13:21)
[2017-02-11 14:24] LABS: % SATURATION 12 % (20-55); TOTAL IRON BINDING CAPACITY 266 ug/dL (260-490)
--- NOTE | 2017-02-11 14:54 | SOAPPROG ---
SOAP Progress Note Assessment/Plan: Assessment: 56-year-old morbidly obese man status post bilateral knee replacements, with untreated sleep apnea and right heart strain: * Debility, status post bilateral total knee arthroplasties complicated by obesity. Initial functional independence measure 89 on 02/09/2017. He has ambulated 80-150 feet with front wheeled walker needing much as 3 L of oxygen. Standby assist for transfers and bed mobility low activity tolerance and shortness of breath with walking. Occasional loss of balance backwards. Standby assist for toileting and showering. Continue Physical therapy and occupational therapy to optimize mobility and activities of daily living. * Hypoxia. Continue oxygen PRN. Hospital evaluation included CT angiogram with pulmonary embolus ruled out and echocardiogram with enlarged right heart. Has orthostatic hypotension so not a candidate for more diuresis at present. Emphasize incentive spirometry. Consider further evaluation depending on how he progresses. * Obstructive sleep apnea. Tolerating replaced CPAP last night, 02/09/2017. Encouraged continued use. Desaturates rapidly if CPAP is not in place. * Hypertension. Continue clonidine 0.1 mg twice daily, benazepril 20 mg daily; metoprolol has been tapered from 50 mg twice daily to 12.5 mg twice daily * Orthostatic hypotension. Nursing and therapy staff to continue working with him on orthostatic tolerance. Decreased furosemide. * Fluid overload and possible right heart failure. With orthostatic hypotension , will decrease furosemide from 40 mg BID to 40 mg QAM and 20 mg QPM starting .. Continue weight daily and monitoring regarding edema and cardiac function. Edema may also be partially due to venous insufficiency. Expect gradual benefit from use of CPAP * Hyperkalemia, hyponatremia. Unclear etiology with intact renal function. Persisting on BMP 02/11/2017. Osmolalities consistent with SIADH however he is also on a diuretic. Will fluid restrict to 2200 cc per day. Discussed dry mouth effects of opiates, clonidine and gabapentin and encouraged frequent small sips rather than drinking large quantities. Fasting cortisol slightly high 02/11/2017. * Supraventricular tachycardia, hypothesized that it was related to episodes of sleep apnea. He will have oxygen at night. He will be observed for any cardiac symptoms. No further workup will be done at present. * Deconditioning. Continue efforts with physical therapy to improve endurance. * Pain management. Per his request further increase in hydromorphone from 10 mg to 12 mg as maximal dose starting 02/09/2017. Continue hydromorphone extended release 16 mg twice daily. * Diabetes mellitus type 2. Continue metformin 1000 mg p.o. twice daily. Blood sugar is elevated. Discussed with patient: Will start exenatide if insurance will cover. * Dyslipidemia continue atorvastatin. * Deep venous thrombosis prophylaxis. Rivaroxaban has been ordered at the hospital. * Followup. He is to see orthopedic surgeon, Dr. Leyva on 02/10/2017 where alba will be assessed for removal and it will be up to Dr. Leyva regarding duration of rivaroxaban. Lives at home with his and plans to return to work. Goal to discharge with modified independence continuing to use assistive device most likely front wheeled walker. Discharge date set for 02/13/2017. 02/11/17 14:50 Subjective: No complaints. Denies cough, dyspnea, fevers, chills. Pain adequately controlled. Objective: Vital Signs Temp Pulse Resp BP Pulse Ox 36.8 C 104 H 18 133/84 H 92 02/11/17 06:18 02/11/17 13:20 02/11/17 06:18 02/11/17 10:02 02/11/17 13:20 Laboratory Results 02/11/17 06:00 02/11/17 06:00 02/10/17 02/11/17 02/12/17 05:59 05:59 05:59 Intake Total 3929 4112 236 Output Total 2024 600 Balance 1904 3512 236 Physical Exam - Physical Exam General Appearance: WD/WN, alert, no apparent distress, obese Respiratory: normal breath sounds, No crackles, No rhonchi, No wheezing Cardiac/Chest: regular rate, rhythm, edema (2+ B LE) Neuro/Psych: no motor/sensory deficits, alert, normal mood/affect, oriented x 3 ICD10 Worksheet Patient Problems: Problems Problem Status Onset ROBERTO (obstructive sleep apnea) Acute S/P total knee arthroplasty Acute
[2017-02-12] MEDS: METHOCARBAMOL 750 MG TAB PO PRN ×3 (05:24→22:43)
[2017-02-12] MEDS: HYDROmorphONE/DILAUDID 2 MG TAB PO PRN ×5 (05:24→22:44)
[2017-02-12] MEDS: POLYETHYLENE GLYCOL 3350 17 GM PKT PO SCH (09:42)
[2017-02-12] MEDS: RIVAROXABAN 10 MG TAB PO SCH (09:46)
[2017-02-12] MEDS: FERROUS SULFATE 325 MG TAB PO SCH (09:53)
[2017-02-12] MEDS: SENNOSIDES/DOCUSATE SODIUM TAB PO SCH ×2 (09:53→21:59)
[2017-02-12] MEDS: ASCORBIC ACID 500 MG TAB PO SCH (09:53)
[2017-02-12] MEDS: BENAZEPRIL HCL 20 MG TAB PO SCH (09:54)
[2017-02-12] MEDS: ATORVASTATIN CALCIUM 40 MG TAB PO SCH (09:55)
[2017-02-12] MEDS: metFORMIN HCL 500 MG TAB PO SCH ×2 (09:55→18:06)
[2017-02-12] MEDS: GABAPENTIN 300 MG CAP PO SCH ×3 (09:55→21:58)
[2017-02-12] MEDS: MAGNESIUM OXIDE 400 MG TAB PO SCH (09:55)
[2017-02-12] MEDS: FUROSEMIDE 40 MG TAB PO SCH (09:56)
[2017-02-12] MEDS: METOPROLOL TARTRATE 25 MG TAB PO SCH ×2 (10:15→21:57)
[2017-02-12] MEDS: HYDROMORPHONE HCL 16 MG PO SCH ×2 (10:17→21:56)
[2017-02-12] MEDS ORDERED: BENAZEPRIL HCL 10 MG TAB PO ONE (11:09)
[2017-02-12] MEDS ORDERED: BENAZEPRIL HCL 20 MG TAB PO SCH (11:10)
--- NOTE | 2017-02-12 11:46 | SOAPPROG ---
SOAP Progress Note Assessment/Plan: Assessment: 56-year-old morbidly obese man status post bilateral knee replacements, with untreated sleep apnea and right heart strain: * Debility, status post bilateral total knee arthroplasties complicated by obesity. Initial functional independence measure 89 on 02/09/2017. He has ambulated 80-150 feet with front wheeled walker needing much as 3 L of oxygen. Advanced to 250 feet standby assist with front wheeled walker and O2 tank following. Modified independence with device for transfers including car transfer. Standby assist for toileting and showering. Continue Physical therapy and occupational therapy to optimize mobility and activities of daily living. * Hypoxia. Continue oxygen PRN. Hospital evaluation included CT angiogram with pulmonary embolus ruled out and echocardiogram with enlarged right heart. Has orthostatic hypotension so not a candidate for more diuresis at present. Emphasize incentive spirometry. Consider further evaluation depending on how he progresses. * Obstructive sleep apnea. Tolerating replaced CPAP. Encouraged continued use. Desaturates rapidly if CPAP is not in place. Has referral for sleep study after discharge. * Hypertension. Continue clonidine 0.1 mg twice daily, benazepril 20 mg daily; metoprolol has been tapered from 50 mg twice daily to 12.5 mg twice daily * Orthostatic hypotension. Nursing and therapy staff to continue working with him on orthostatic tolerance. Decreased furosemide. * Fluid overload and possible right heart failure. With orthostatic hypotension , will decrease furosemide from 40 mg BID to 40 mg QAM and 20 mg QPM starting . Continue weight daily and monitoring regarding edema and cardiac function. Edema may also be partially due to venous insufficiency. Expect gradual benefit from use of CPAP * Hyperkalemia, hyponatremia. Unclear etiology with intact renal function. Persisting on BMP 02/11/2017. Osmolalities consistent with SIADH however he is also on a diuretic. Will fluid restrict to 2200 cc per day. Discussed dry mouth effects of opiates, clonidine and gabapentin and encouraged frequent small sips rather than drinking large quantities. Fasting cortisol slightly high 02/11/2017. Repeat BMP 02/13/17. * Supraventricular tachycardia, hypothesized that it was related to episodes of sleep apnea. He will have oxygen at night. He will be observed for any cardiac symptoms. No further workup will be done at present. * Deconditioning. Continue efforts with physical therapy to improve endurance. * Pain management. Per his request further increase in hydromorphone from 10 mg to 12 mg as maximal dose starting 02/09/2017. Continue hydromorphone extended release 16 mg twice daily. Discussed opiate prescription for discharge. Will prescribed 1 week supply at the dosing that was prescribed when he was admitted. Anticipate considerable improvement in pain now that he is 2 weeks out from surgery. * Diabetes mellitus type 2. Continue metformin 1000 mg p.o. twice daily. Blood sugar is elevated. Discussed with patient: Will start exenatide if insurance will cover. * Dyslipidemia continue atorvastatin. * Deep venous thrombosis prophylaxis. Rivaroxaban has been ordered at the hospital. * Followup. He is to see orthopedic surgeon, Dr. Leyva on 02/18/2017 where alba will be assessed for removal and it will be up to Dr. Leyva regarding duration of rivaroxaban. Lives at home with his and plans to return to work. Goal to discharge with modified independence continuing to use assistive device most likely front wheeled walker. Discharge date set for 02/13/2017. 02/12/17 11:48 Subjective: No complaints this morning. Requests that his prescriptions be available this afternoon so that he can get his medications prior discharge tomorrow. Discussed opiate dosing. Denies fevers, chills, dyspnea. Has occasional cough with rare white mucus. Objective: Vital Signs Temp Pulse Resp BP Pulse Ox 36.8 C 97 18 145/86 H 97 02/12/17 08:00 02/12/17 08:00 02/12/17 08:00 02/12/17 09:46 02/12/17 08:00 Laboratory Results 02/11/17 06:00 02/11/17 06:00 02/11/17 02/12/17 02/13/17 05:59 05:59 05:59 Intake Total 4112 2236 2092 Output Total 600 Balance 7322 2236 2092 Physical Exam - Physical Exam General Appearance: WD/WN, alert, no apparent distress, obese Respiratory: normal breath sounds, rhonchi (few expiratory), No crackles, No wheezing Cardiac/Chest: regular rate, rhythm, edema (2 - 3 + B LE) Neuro/Psych: no motor/sensory deficits, alert, normal mood/affect, oriented x 3 ICD10 Worksheet Patient Problems: Problems Problem Status Onset ROBERTO (obstructive sleep apnea) Acute S/P total knee arthroplasty Acute
--- NOTE | 2017-02-12 13:26 | PDOREHIP ---
Admission [facility] - Admission - 3 Day Assessment Period Admission Date/Day 1: 02/04/17 Day 2: 02/05/17 Day 3: 02/06/17 Discharge [facility] - Discharge - 3 Day Assessment Period 2 Days Prior to Anticipated Discharge Date: 02/11/17 1 Day Prior to Anticipated Discharge Date: 02/12/17 Anticipated Discharge Date: 02/13/17 - Discharge Skin Conditions Unhealed Pressure Ulcer (1 or more/Stage 1 or >)-Discharge: 0. No
[2017-02-12] MEDS: FUROSEMIDE 20 MG TAB PO SCH (14:12)
[2017-02-12] MEDS: CLOTRIMAZOLE 1% 15 GM CRTUBE TP SCH ×2 (14:32→22:20)
[2017-02-12 20:34] VITALS: RESP 17
[2017-02-13 05:25] VITALS: O2SAT 95
[2017-02-13] MEDS: HYDROmorphONE/DILAUDID 2 MG TAB PO PRN ×4 (05:32→19:33)
[2017-02-13] MEDS: METHOCARBAMOL 750 MG TAB PO PRN ×2 (07:04→16:28)
[2017-02-13 08:00] LABS: ANION GAP 10 mEq/L (8-16); CALCIUM 9.2 mg/dL (8.5-10.4); CARBON DIOXIDE 32 mEq/l (22-31); CHLORIDE 96 mEq/L (97-110); GLOMERULAR FILTRATION RATE > 60; GLUCOSE 162 mg/dL (70-100); POTASSIUM 4.8 mEq/L (3.5-5.2); SODIUM 138 mEq/L (134-144)
[2017-02-13] MEDS: metFORMIN HCL 500 MG TAB PO SCH ×2 (08:05→17:50)
[2017-02-13] MEDS: RIVAROXABAN 10 MG TAB PO SCH (08:14)
[2017-02-13] MEDS: ATORVASTATIN CALCIUM 40 MG TAB PO SCH (08:14)
[2017-02-13] MEDS: FERROUS SULFATE 325 MG TAB PO SCH (08:15)
[2017-02-13] MEDS: FUROSEMIDE 40 MG TAB PO SCH (08:15)
[2017-02-13] MEDS: MAGNESIUM OXIDE 400 MG TAB PO SCH (08:15)
[2017-02-13] MEDS: ASCORBIC ACID 500 MG TAB PO SCH (08:15)
[2017-02-13] MEDS: GABAPENTIN 300 MG CAP PO SCH ×2 (08:15→16:28)
[2017-02-13] MEDS: METOPROLOL TARTRATE 25 MG TAB PO SCH (08:16)
[2017-02-13] MEDS: SENNOSIDES/DOCUSATE SODIUM TAB PO SCH (08:16)
[2017-02-13] MEDS: CLOTRIMAZOLE 1% 15 GM CRTUBE TP SCH (08:18)
[2017-02-13] MEDS: POLYETHYLENE GLYCOL 3350 17 GM PKT PO SCH (08:19)
[2017-02-13] MEDS: HYDROMORPHONE HCL 16 MG PO SCH (08:36)
[2017-02-13] MEDS: FUROSEMIDE 20 MG TAB PO SCH (14:08)
--- NOTE | 2017-02-13 18:48 | GDS ---
[f rep st] DISCHARGE SUMMARY ADMITTING DIAGNOSIS: Debility, status post bilateral total knee replacements. DISCHARGE DIAGNOSES: Debility, status post bilateral total knee replacements. OTHER DISCHARGE DIAGNOSES: 1. Hypoxemia. 2. Obstructive sleep apnea. 3. Hypertension. 4. Chronic pain. 5. Diabetes mellitus type 2. CONSULTATIONS: There were none. PROCEDURES: There were none. COMPLICATIONS: There were none. HISTORY/HOSPITAL COURSE: This patient came to [facility] following bilateral knee replacements. His hospital course had been complicated by hypoxia, hypotension, fluid resuscitation, supraventricular tachycardia, and nocturnal hypoxia consistent with obstructive sleep apnea. He was stabilized and discharged for rehabilitation. He made good progress in rehabilitation. His initial functional independence measure was 89 on 02/09/2017, which is consistent with assisted living facility level of function. At that time, he was able to ambulate 80-150 feet with a front-wheeled walker. His ambulation advanced to 250 feet with standby assist using a front-wheeled walker. He needed oxygen with activity, as much as 3 L. He was able to accomplish a car transfer with modified independence using a front-wheeled walker. He accomplished toileting and showering with standby assist. He had hypoxia throughout his course, especially with activity. Review of hospital records showed a CT angiogram which ruled out pulmonary embolus and an echocardiogram which showed an enlarged right heart. Hypoxia was felt likely due to right-sided congestive heart failure, as well as obesity hypoventilation. There was orthostatic hypotension which limited diuresis, but he was maintained on furosemide at 40 mg in the morning and 20 mg in the afternoon. He was noted to have dramatic decreases in his oxygenation into the 70s percent when he was sleeping. He had a history of sleep apnea and reported that he was not apneic if he could sleep on his side, and that he had had a uvuloplasty procedure in the past. However, he was unable most of the time to sleep on his side, due to pain in his knees. He could not tolerate his existing CPAP machine. Respiratory therapy was able to arrange a replacement CPAP for while he was in the hospital, and he was able to tolerate that for several hours at a time. Hypertension and also orthostatic hypotension: Benazepril was tapered from 40 mg to 20 mg daily, and metoprolol was tapered from 50 mg twice daily to 12.5 mg twice daily. He continued on clonidine 0.1 mg twice daily and overall, blood pressure was adequately controlled. As he worked with therapies, he ceased to have orthostatic symptoms. Hyperkalemia and hyponatremia were noted. The etiology was unclear, may have been related to blood pressure and fluid status during his hospitalizations. He was placed on a 2200 cc per day fluid restriction, as he had been noted to be drinking as much as 4 L per day. His potassium and sodium completely normalized on the day of discharge. He was advised to liberalize his fluid intake, but not to return to 4 L per day. It was thought that dry mouth due to opiates and clonidine as well as gabapentin might be contributing to his large fluid intake, and he was advised to have small sips to treat his dry mouth. Pain management was an issue. He was on large doses of opiates when he was admitted with hydromorphone continuous release 16 mg twice a day as well as immediate release 8 mg every 4 hours as needed. He requested increases in his dosing initially to 10 mg and then to 12 mg, and he was consistently using his maximum dose every 4 hours. There was a history of opiate dependence and it was considered that he might be returning to this old habit. He was discharged on the hydromorphone dose on which he was admitted, 8 mg q.4 hours p.r.n., and he was planning to follow up with a pain management doctor after he leaves. Diabetes mellitus type 2. He had consistently high blood sugars, with fastings in the range of 160-240. He had consultation with the dietitian. He was on metformin 1000 mg twice daily. An addition of a sulfonylurea or insulin was not thought to be in his best interest due to his obesity. There was discussion regarding initiating liraglutide, which would improve his blood sugar control as well as helping with some weight loss. However, during the course of his stay, he was unable to determine whether his insurance company would cover it. He was going to follow up with his primary care provider after discharge. PHYSICAL EXAM ON DAY OF DISCHARGE: VITAL SIGNS: Blood pressure is 122/58, heart rate is 102, respiratory rate is 17, oxygen saturation is 95% on 2 L. Temperature is 36.7 degrees centigrade. His weight is 158.4 kg for a body mass index of 47.4. GENERAL: This is a very obese man sitting in a chair, cooperative and in no acute distress. HEART: There is regular rate and rhythm with no murmurs, rubs, or gallops. LUNGS: Clear to auscultation bilaterally. ABDOMEN: Soft, nontender, nondistended with normoactive bowel sounds. EXTREMITIES: There is no cyanosis or clubbing. There is brawny discoloration to the shins and he has 2 to 3+ pitting edema bilaterally to the lower extremities. LABORATORY STUDIES: BMP on the day of discharge revealed normal sodium and potassium, chloride was low at 96, and carbon dioxide was elevated at 32, BUN was elevated at 40 with a normal creatinine of 1.0, and his glucose was 162. CBC on 02/11/2017, showed a white blood cell count of 12.35, hemoglobin was 11, hematocrit was 34, platelet count was elevated at 444. An iron panel was obtained and he had low iron at 32, a normal TIBC at 266, and iron saturation of 12%. MEDICATIONS AT DISCHARGE: 1. Benazepril 30 mg p.o. daily. 2. Ferrous sulfate 325 mg p.o. daily through 03/14/2017. 3. Furosemide 40 mg p.o. daily and 20 mg p.o. daily at 1400. 4. Vitamin B complex 1 p.o. daily. 5. Magnesium carbonate 1200 mg p.o. daily. 6. Senna/docusate 1 p.o. twice daily. 7. Polyethylene glycol 17 g p.o. daily. 8. Miconazole powder twice daily. 9. Clotrimazole cream twice daily. 10. Ascorbic acid 7000 mg daily, which was his dose prior to admission. 11. Atorvastatin 40 mg p.o. daily. 12. Clonidine 0.1 mg p.o. twice daily. 13. Gabapentin 300 mg p.o. 3 times daily. 14. Hydromorphone 8 mg p.o. q.4 hours p.r.n. 15. Hydromorphone continuous release 16 mg p.o. twice daily. 16. Metformin 1000 mg p.o. twice daily. 17. Methocarbamol 750 mg p.o. q.8 hours p.r.n. muscle spasm. 18. Metoprolol 12.5 mg p.o. twice daily. 19. Rivaroxaban 10 mg p.o. daily. ISSUES TO BE ADDRESSED AT FOLLOWUP: 1. Mobility and activities of daily living: He will continue PT and OT after discharge, and he can follow up with his primary care provider. 2. Status post bilateral knee replacements, to follow up with orthopedic surgeon, Dr. Leyva, on 02/18/2017, at 1:30 p.m. 3. Obstructive sleep apnea. He is to schedule a sleep study to clarify his diagnosis and optimize his treatment. 4. Diabetes mellitus type 2 and morbid obesity. It would be in his best interest to add liraglutide for weight loss and for improved glycemic control. He can follow up with his primary care provider. 5. Iron deficiency anemia. Continue iron supplement for 1 month, and repeat CBC in consultation with his primary care provider. 6. Hypoxemia. He is discharged with oxygen to be used at night and p.r.n. It is hoped that with use of CPAP and possibly with weight loss, he will have improvement in his right heart failure and may be able to come off oxygen. 7. Deep venous thrombosis prophylaxis. He was continued on rivaroxaban through his stay, and he will decide in consultation with Dr. Leyva, the duration of rivaroxaban. Greater than 30 minutes were spent on this discharge including medication reconciliation, coordination of care and counseling patient. /[id number]/MODL MTDD
[2017-02-13 21:01] VITALS: BP 128/77; PULSE 113; TEMP 98.5
== END 2017-02-13 20:00 | disposition still patient (30) | DRG 560 ==
LOC: BREH 02-04 14:45
PROVIDERS: ADMIT Internal Medicine; ATTEND Internal Medicine
DX: Z47.1 Aftercare following joint replacement surgery (principal); Z96.653 Presence of artificial knee joint, bilateral; I47.1 Supraventricular tachycardia; R09.02 Hypoxemia; E66.01 Morbid (severe) obesity due to excess calories; G47.33 Obstructive sleep apnea (adult) (pediatric); E87.70 Fluid overload, unspecified; E87.1 Hypo-osmolality and hyponatremia; E87.5 Hyperkalemia; E11.9 Type 2 diabetes mellitus without complications; I95.1 Orthostatic hypotension; E78.5 Hyperlipidemia, unspecified; I10 Essential (primary) hypertension; M54.9 Dorsalgia, unspecified; Z85.47 Personal history of malignant neoplasm of testis; Z68.42 Body mass index [BMI] 45.0-49.9, adult
CPT/HCPCS: 97110-GO; 97110-GP; 97116-GP; 97161-GP; 97166-GO; 97530-GO; 97530-GP; 97535-GO

== ENCOUNTER 2017-04-08 14:33 | Emergency (ER) | payer BC ==
--- NOTE | 2017-04-08 14:46 | CPEKG ---
Heart Rate: 95 RR Interval: 632 P-R Interval: 164 QRSD Interval: 84 QT Interval: 388 QTC Interval: 488 P Jennings: 51 QRS Jennings: -19 T Wave Jennings: 34 EKG Severity - ABNORMAL ECG - EKG Impression: SINUS RHYTHM EKG Impression: ATRIAL PREMATURE COMPLEX EKG Impression: PROBABLE LEFT ATRIAL ABNORMALITY EKG Impression: PROBABLE INFERIOR INFARCT, OLD EKG Impression: BORDERLINE PROLONGED QT INTERVAL Electronically Signed By: Julio Jimenez 10-Apr-2017 06:16:01
[2017-04-08 14:51] LABS: % IMMATURE GRANULYOCYTES 0.3 % (0.0-1.1); ABSOLUTE IMMATURE GRANULOCYTES 0.03 10^3/uL (0.00-0.10); ADD DIFF? NO; ADD MORPH? NO; ADD SCAN? NO; ATYPICAL LYMPHOCYTE FLAG 0 (0-99); FRAGMENT RBC FLAG 0 (0-99); HEMATOCRIT 45.1 % (40.0-51.0); HEMOGLOBIN 14.8 g/dL (13.7-17.5); LEFT SHIFT FLG 0 (0-99); LIPEMIA HEMOLYSIS FLAG 80 (0-99); MEAN CELL HEMOGLOBIN CONCENTR. 32.8 g/dL (32.4-36.7); MEAN CELL VOLUME 88.4 fL (81.5-99.8); MEAN PLATELET VOLUME 9.6 fL (8.7-11.7); PLATELET CLUMPS FLAG 10 (0-99); PLATELET COUNT 300 10^3/uL (150-400); RED CELL DISTRIBUTION WIDTH 14.8 % (11.5-15.2)
--- NOTE | 2017-04-08 15:10 | EDPHY ---
H & P Time Seen by Provider: 04/08/17 15:01 HPI/ROS: HPI Shortness of breath, chest pressure. 56-year-old male by private vehicle. This patient has a recent history of bilateral knee replacements about 3 weeks ago. He complains of shortness of breath and midsternal chest pressure and tightness since last Thursday. He denies any chest pain. He reports that his shortness of breath is worse when he is laying flat. Denies any association with exertion. He has not had a cough. No fever. ROS: Constitutional: No fever, no chills. No weakness. Eyes: No discharge. No changes in vision. ENT: No sore throat. No nasal congestion or rhinorrhea. Respiratory: No cough. As above. Cardiac: As above, no palpitations. Gastrointestinal: No abdominal pain, no vomiting, no diarrhea. Genitourinary: No hematuria. No dysuria or increased frequency with urination. Musculoskeletal: No back pain. No neck pain. No myalgias or arthralgias. Skin: No rashes. Neurological: No headache. No focal weakness or altered sensation. Past medical history: Knee replacement as above, appendectomy, hypertension, type 2 diabetes, tonsillectomy, back surgery. Social history: Nonsmoker. Denies alcohol. Physical Exam: General Appearance: Alert, no distress. Large man, and morbid obesity. The patient is mildly dyspneic. This patient is responding to questions appropriately and in full sentences. This patient appears well-hydrated and well-nourished. Eyes: Pupils equal and round no pallor or injection. No lid edema, erythema or injection. Respiratory: There are no retractions, breath sounds are distant but lung are clear to auscultation bilaterally. He is mildly tachypneic. Cardiovascular: Regular rate and rhythm distant. No murmur appreciated. Gastrointestinal: Abdomen is soft and nontender, no masses, bowel sounds normal. No focal tenderness at McBurney's point. No Roland sign. Neurological: Motor sensory function is grossly intact. Cranial nerves are normal. Gait is normal. Skin: Warm and dry, no rashes. Musculoskeletal: Neck is supple and nontender. Extremities are symmetrical. He has 2+ pitting edema which is symmetrical in the bilateral lower extremities. All joints range without pain or impingement. Psychiatric: No agitation. No depression. Database: EKG: EKG time is 2:44 p.m.; EKG shows a narrow complex normal sinus rhythm with a ventricular rate of 95. Premature atrial complex noted. The ME, QRS, QT intervals are within normal limits. There are no ST-T wave changes indicative of ischemic or injury pattern. No evidence of right heart strain. Interpreted by me. Imaging: Chest x-ray PA and lateral; the cardiac mediastinal silhouette is unremarkable. No evidence of infiltrate or pneumothorax. No acute cardiopulmonary disease process noted. Interpreted by me. CT angiogram of chest; no evidence of pulmonary embolism. No pulmonary edema. Mild enlargement of the heart. He has significant coronary artery disease left main coronary artery and left anterior descending. Results were discussed with staff radiologist Dr. Henrique Cannon. Procedures: Emergency department course: IV placed. Vital signs reviewed. He is hypertensive. EKG obtained and reviewed by myself. Pulse oximetry on room air is 93-94%. 5:15 p.m., patient re-evaluated. Discussed the results of his EKG, blood work and CT scan. I discussed admission with him to our hospitalist service for further evaluation of his symptoms and cardiology consultation as well as an echocardiogram. He is adamantly declining this. In my professional opinion he understands the risks of refusing admission and further workup. I discussed this with him in detail. He will not budge and states that he will follow up with his primary care physician Dr. Siu tomorrow and go from there. The patient competently engages in shared decision making. They demonstrate capacitance to make decisions. This said, the patient was discharged home. I discussed follow-up with Cardiology with him. I reviewed return to emergency department precautions in detail with him. All of his questions were answered. He was discharged against medical advice in good condition. Differential Diagnosis: The differential diagnosis on this patient includes but is not limited to congestive heart failure, pulmonary embolism, acute coronary syndrome, pneumonia , hypertensive emergency. This represents a partial list of diagnoses considered. These considerations are based on history, physical exam, past history, reassessment and diagnostic testing. Smoking Status: Never smoked Constitutional: Initial Vital Signs Temperature (C) 37.2 C 04/08/17 14:41 Heart Rate 91 04/08/17 14:41 Respiratory Rate 22 H 04/08/17 14:41 Blood Pressure 191/119 H 04/08/17 14:41 O2 Sat (%) 91 L 04/08/17 14:41 O2 Delivery Mode Room Air Allergies/Adverse Reactions: No Known Allergies Allergy (Verified 04/08/17 14:41) Home Medications: Medication Instructions Recorded Atorvastatin Calcium [Lipitor 40 40 mg PO DAILY #30 tab 02/12/17 mg (*)] Benazepril HCl [Lotensin (*)] 30 mg PO DAILY #45 tab 02/12/17 Furosemide [Lasix 40 MG (*)] 40 mg PO DAILY #30 tab 02/12/17 Metformin HCl [Metformin 1000 mg] 1,000 mg PO BIDMEAL #60 tablet 02/12/17 clonIDINE [Catapres (*)] 0.1 mg PO BID #60 tab 02/12/17 Medical Decision Making - Diagnostics Imaging Results: Imaging Impressions Chest X-Ray 04/08/17 14:52 Impression: 1. Poor inspiration with compressive atelectatic change suspected at the right lung base. Chest/Thorax CTA 04/08/17 15:21 Impression: 1. No pulmonary embolic disease identified. 2. Coronary artery disease: including the left main. Results called and discussed with Sho Crystal MD, at 04/08/2017 17: 08 General information for patients regarding this examination can be found at [email or web address]. If you have questions or comments about this report, please contact me at [phone] (hospital) or [phone] (cell). - Data Points Laboratory Results: Laboratory Results 04/08/17 14:45 04/08/17 Unknown 04/08/17 04/08/17 04/08/17 Unknown Unknown Unknown WBC RBC Hgb Hct MCV MCH MCHC RDW Plt Count MPV Neut % (Auto) Lymph % (Auto) Slope % (Auto) Eos % (Auto) Baso % (Auto) Nucleat RBC Rel Count Absolute Neuts (auto) Absolute Lymphs (auto) Absolute Monos (auto) Absolute Eos (auto) Absolute Basos (auto) Absolute Nucleated RBC Immature Gran % Immature Gran # D-Dimer 2.84 ug/mLFEU H ug/mLFEU (0.00-0.50) Sodium 142 mEq/L mEq/L (134-144) Potassium 4.1 mEq/L mEq/L (3.5-5.2) Chloride 99 mEq/L mEq/L (97-110) Carbon Dioxide 27 mEq/l mEq/l (22-31) Anion Gap 16 mEq/L mEq/L (8-16) BUN 23 mg/dL mg/dL (7-23) Creatinine 1.1 mg/dL mg/dL (0.7-1.3) Estimated GFR > 60 Glucose 188 mg/dL H mg/dL (70-100) Calcium 9.8 mg/dL mg/dL (8.5-10.4) Total Bilirubin 0.6 mg/dL mg/dL (0.1-1.4) AST 17 IU/L IU/L (17-59) ALT 34 IU/L IU/L (21-72) Alkaline Phosphatase 139 IU/L H IU/L (38-126) Troponin I 0.022 ng/mL ng/mL (0.000-0.034) NT-Pro-B Natriuret Pep 905 pg/mL H pg/mL (0-125) Total Protein 6.7 g/dL g/dL (6.3-8.2) Albumin 3.8 g/dL g/dL (3.5-5.0) 04/08/17 14:45 WBC 8.97 10^3/uL 10^3/uL (3.80-9.50) RBC 5.10 10^6/uL 10^6/uL (4.40-6.38) Hgb 14.8 g/dL g/dL (13.7-17.5) Hct 45.1 % % (40.0-51.0) MCV 88.4 fL fL (81.5-99.8) MCH 29.0 pg pg (27.9-34.1) MCHC 32.8 g/dL g/dL (32.4-36.7) RDW 14.8 % % (11.5-15.2) Plt Count 300 10^3/uL 10^3/uL (150-400) MPV 9.6 fL fL (8.7-11.7) Neut % (Auto) 73.5 % % (39.3-74.2) Lymph % (Auto) 13.4 % L % (15.0-45.0) Slope % (Auto) 10.5 % % (4.5-13.0) Eos % (Auto) 1.4 % % (0.6-7.6) Baso % (Auto) 0.9 % % (0.3-1.7) Nucleat RBC Rel Count 0.0 % % (0.0-0.2) Absolute Neuts (auto) 6.59 10^3/uL H 10^3/uL (1.70-6.50) Absolute Lymphs (auto) 1.20 10^3/uL 10^3/uL (1.00-3.00) Absolute Monos (auto) 0.94 10^3/uL H 10^3/uL (0.30-0.80) Absolute Eos (auto) 0.13 10^3/uL 10^3/uL (0.03-0.40) Absolute Basos (auto) 0.08 10^3/uL 10^3/uL (0.02-0.10) Absolute Nucleated RBC 0.00 10^3/uL 10^3/uL (0-0.01) Immature Gran % 0.3 % % (0.0-1.1) Immature Gran # 0.03 10^3/uL 10^3/uL (0.00-0.10) D-Dimer Sodium Potassium Chloride Carbon Dioxide Anion Gap BUN Creatinine Estimated GFR Glucose Calcium Total Bilirubin AST ALT Alkaline Phosphatase Troponin I NT-Pro-B Natriuret Pep Total Protein Albumin Departure - Departure Disposition: Against Medical Advice Clinical Impression: Chest discomfort, Dyspnea Condition: Good Instructions: Chest Pain (ED), Dyspnea (ED) Additional Instructions: Read and follow provided instructions. Follow-up with your primary care physician in 1-2 days for re-evaluation. You should also see a zipper setter chainstitch as soon as possible. I have provided you with a referral to Dr. Hardik Caldera. Call his office tomorrow to schedule an appointment within the next few days. You can see him or 1 of his partners at [facility]. You need an echocardiogram and further evaluation by a zipper setter chainstitch. Take your medication as prescribed. Return to the emergency department for worsening symptoms, chest pain, difficulty breathing or other serious concerns. Referrals: Belinda Siu MD [Primary Care Provider] - As per Instructions Hardik Caldera MD [Medical Doctor] - As per Instructions
[2017-04-08 15:18] LABS: ALANINE AMINOTRANSFERASE 34 IU/L (21-72); ALBUMIN 3.8 g/dL (3.5-5.0); ALKALINE PHOSPHATASE 139 IU/L (38-126); ANION GAP 16 mEq/L (8-16); ASPARTATE AMINOTRANSFERASE 17 IU/L (17-59); BILIRUBIN,TOTAL 0.6 mg/dL (0.1-1.4); CALCIUM 9.8 mg/dL (8.5-10.4); CARBON DIOXIDE 27 mEq/l (22-31); CHLORIDE 99 mEq/L (97-110); CREATININE 1.1 mg/dL (0.7-1.3); GLOMERULAR FILTRATION RATE > 60; GLUCOSE 188 mg/dL (70-100); POTASSIUM 4.1 mEq/L (3.5-5.2); SODIUM 142 mEq/L (134-144); TOTAL PROTEIN 6.7 g/dL (6.3-8.2)
[2017-04-08 15:29] LABS: TROPONIN I 0.022 ng/mL (0.000-0.034)
[2017-04-08] MEDS ORDERED: IOPAMIDOL (ISOVUE 370) 100 ML BTL IV ONE ×2 (15:31→16:22)
[2017-04-08 17:07] VITALS: PULSE 94
[2017-04-08 17:19] VITALS: BP 176/104; RESP 20; TEMP 98.1; O2SAT 88
[2017-04-10] MEDS ORDERED: IOPAMIDOL (ISOVUE-370) 150 ML BTL IV ONE (12:39)
== END 2017-04-08 17:20 | disposition left against medical advice (07) ==
LOC: CED 14:33
DX: R07.89 Other chest pain (principal); R06.00 Dyspnea, unspecified; I10 Essential (primary) hypertension; E11.9 Type 2 diabetes mellitus without complications; Z79.84 Long term (current) use of oral hypoglycemic drugs
CPT/HCPCS: 71020-PO; 71275-PO; 80053-PO; 83880-PO; 84484-PO; 85025-PO; 85378-PO; J1644; Q9967

== ENCOUNTER 2017-04-08 21:25 | Inpatient (IN) | payer BC ==
--- NOTE | 2017-04-08 21:46 | EDPHY ---
H & P Time Seen by Provider: 04/08/17 21:37 HPI/ROS: CHIEF COMPLAINT: Dyspnea HISTORY OF PRESENT ILLNESS: This patient is a 56 y/o male with history of CAD, hypertension, and sleep apnea returning to the emergency department with his after being evaluated earlier today for shortness of breath onset 4-5 days ago. The patient had bilateral knee replacements about 8 weeks ago. He was recovering well until Thursday night, when he became very short of breath, gasping frequently. This has been constant since onset. He has pressure in his chest as well that is increased with deep inspiration. He was offered admission earlier today, but declined because he wanted to let his dogs out and wait for his to get home. CTA this afternoon was negative for PE. This evening, he experienced worsening dyspnea with exertion, and presents for further evaluation. No fever, cough, vomiting, abdominal pain, or other associated symptoms. REVIEW OF SYSTEMS: A 10 point review of systems was performed and is negative with the exception of the elements mentioned in the history of present illness. Past Medical/Surgical History: 1. Borderline diabetes mellitus type II (Metformin) 2. Bilateral knee replacement 3. Appendectomy 4. Tonsillectomy 5. Back surgery L4-5 Social History: at bedside. Nonsmoker. Lives in [place]. Smoking Status: Never smoked Physical Exam: General Appearance: Alert, tachypneic, obese Eyes: Pupils equal and round, no conjunctival pallor or injection ENT, Mouth: Mucous membranes moist Neck: Normal inspection Respiratory: Tachypnea, distant breath sounds. Cardiovascular: Regular rate and rhythm Gastrointestinal: Abdomen is soft and non-tender Neurological: A&O, nonfocal exam Skin: Warm and dry Extremities: Bilateral 1+ pitting edema to lower extremities, dusky in color. Nontender. Psychiatric: Mood and affect normal Constitutional: Initial Vital Signs Temperature (C) 37.4 C 04/08/17 21:30 Heart Rate 91 04/08/17 21:30 Respiratory Rate 20 04/08/17 21:30 Blood Pressure 170/92 H 04/08/17 21:30 O2 Sat (%) 91 L 04/08/17 21:30 O2 Delivery Mode Nasal Cannula O2 (L/minute) 2 Allergies/Adverse Reactions: No Known Allergies Allergy (Verified 04/08/17 21:30) Home Medications: Medication Instructions Recorded Atorvastatin Calcium [Lipitor 40 40 mg PO DAILY #30 tab 02/12/17 mg (*)] Metformin HCl [Metformin 1000 mg] 1,000 mg PO BIDMEAL #60 tablet 02/12/17 clonIDINE [Catapres (*)] 0.1 mg PO BID #60 tab 02/12/17 Ascorbic Acid [Vitamin C 500 mg 500 mg PO DAILY 04/09/17 (*)] Benazepril HCl [Lotensin (*)] 40 mg PO DAILY 04/09/17 Furosemide [Lasix 40 MG (*)] 40 mg PO BID 04/09/17 HYDROmorphone HCL [Dilaudid 4 mg 8 mg PO Q4HRS PRN 04/09/17 (*)] HYDROmorphone HCL [Hydromorphone 16 mg PO BID 04/09/17 ER] Methocarbamol [Robaxin 750 mg (*)] 750 mg PO Q8HRS PRN 04/09/17 Niacin [Niacin 500 mg (*)] 500 mg PO DAILY 04/09/17 Medical Decision Making - Diagnostics EKG Interpretation: EKG interpreted by me reveals normal sinus rhythm, rate 79, no ST or T segment changes. Interpretation: Normal EKG ED Course/Re-evaluation: 56 y/o male presents with four day history of worsening dyspnea. He is quite tachypneic on exam. Exam reveals bilateral 1+ pitting edema to the lower extremities, dusky in color. The patient states this is chronic for him, and his legs appear better today than they have in the past. Plan to admit for further evaluation as recommended earlier today. Concern for cardiac ischemia causing his symptoms, given the LAD calcification seen on CT scan. Repeat troponin ordered. There is no evidence of pulmonary embolism on CT earlier today, but given recent bilateral knee replacements and elevated D-dimer, I ordered bilateral lower extremity ultrasounds. 22:[address] Valladares, hospitalist. She accepts admission to PCU for further evaluation. Troponin is normal. Bilateral lower extremity ultrasounds are normal, read by the radiologist. The patient is on oxygen and maintaining an oxygen saturation of 95% on 2 L. Differential Diagnosis: Differential diagnosis includes though it is not limited to pneumonia, pneumothorax, pulmonary embolism, aortic dissection, pericarditis, acute coronary syndrome. - Data Points Medications Given: Atorvastatin Calcium (Lipitor) 40 mg PO DAILY [facility] Stop: 10/06/17 11:29 Last Admin: 04/09/17 13:35 Dose: 40 mg Benazepril HCl (Lotensin) 40 mg PO DAILY [facility] Stop: 10/06/17 11:29 Last Admin: 04/09/17 13:35 Dose: 40 mg Clonidine (Catapres) 0.1 mg PO BID [facility] Stop: 10/06/17 11:29 Last Admin: 04/09/17 20:52 Dose: 0.1 mg Diphenhydramine HCl (Benadryl) 25 - 50 mg PO Q6HRS PRN PRN Reason: Itching Stop: 10/05/17 23:11 Last Admin: 04/09/17 22:07 Dose: 50 mg Furosemide (Lasix) 40 mg PO BID [facility] Stop: 10/06/17 11:29 Last Admin: 04/09/17 20:51 Dose: 40 mg Hydromorphone HCl (Dilaudid) 8 mg PO Q4HRS PRN PRN Reason: Pain, Breakthrough Stop: 04/19/17 11:15 Last Admin: 04/09/17 22:06 Dose: 8 mg Metformin HCl (Glucophage) 1,000 mg PO BIDMEAL [facility] Stop: 10/06/17 17:59 Last Admin: 04/09/17 18:33 Dose: 1,000 mg Methocarbamol (Robaxin) 750 mg PO Q8HRS PRN PRN Reason: Spasms Stop: 10/06/17 11:15 Last Admin: 04/09/17 22:07 Dose: 750 mg Metoprolol Tartrate (Lopressor) 25 mg PO BID [facility] Stop: 10/06/17 18:14 Last Admin: 04/09/17 20:51 Dose: 25 mg Miscellaneous Medication (Hydromorphone Hcl [Hydromorphone Er]) 16 mg PO BID [facility] Stop: 10/06/17 11:29 Last Admin: 04/09/17 20:55 Dose: Not Given Niacin (Niacin) 500 mg PO DAILY [facility] Stop: 10/06/17 11:29 Last Admin: 04/09/17 13:35 Dose: 500 mg Discontinued Medications Aspirin (Aspirin) 324 mg PO EDNOW ONE Stop: 04/08/17 21:52 Last Admin: 04/08/17 22:54 Dose: 324 mg Departure - Departure Disposition: [facility] Clinical Impression: Chest pressure Dyspnea Qualifiers: Dyspnea type: shortness of breath Qualified Code(s): R06.02 - Shortness of breath Condition: Fair Report Scribed for: Kia Rodriguez Report Scribed by: Mayda Kim Date of Report: 04/08/17 Time of Report: 21:46 Physician Review and Approval Statement: 04/08/17 21:46 Portions of this note were transcribed by a medical secretary receptionist. I personally performed a history, physical exam, medical decision making, and confirmed accuracy of information the transcribed note.
[2017-04-08] MEDS ORDERED: ASPIRIN 81 MG CHEWABLE TAB PO ONE (21:51)
--- NOTE | 2017-04-08 21:58 | CPEKG ---
Heart Rate: 79 RR Interval: 759 P-R Interval: 168 QRSD Interval: 88 QT Interval: 404 QTC Interval: 464 P Kula: 53 QRS Kula: -19 T Wave Kula: 34 EKG Severity - OTHERWISE NORMAL ECG - EKG Impression: SINUS RHYTHM EKG Impression: BORDERLINE LEFT AXIS DEVIATION Electronically Signed By: Kia Rodriguez 08-Apr-2017 22:58:43
[2017-04-08] MEDS ORDERED: ACETAMINOPHEN 325 MG TAB PO PRN (23:12)
[2017-04-08] MEDS ORDERED: HYDROCODONE/APAP 5/325 TAB PO PRN (23:12)
[2017-04-08] MEDS ORDERED: ONDANSETRON 4 MG/2 ML VIAL IVP PRN (23:12)
[2017-04-08] MEDS ORDERED: TEMAZEPAM 15 MG CAP PO PRN (23:12)
[2017-04-08] MEDS ORDERED: NITROGLYCERIN 0.4 MG BTL SL PRN (23:17)
--- NOTE | 2017-04-09 02:59 | GHP ---
[f rep st] HISTORY AND PHYSICAL DATE OF ADMISSION: 04/08/2017 Patient seen on floor arrived after midnight on 04/09/2017 SOURCE: Patient provides some history, but is limited as he falls asleep and is reluctant to cooperate with interview. Majority of history is obtained after discussion with the ER provider prior to patient's arrival to the floor. CHIEF COMPLAINT: Shortness of breath and chest pressure. HISTORY OF PRESENT ILLNESS: This is a 56-year-old gentleman with past medical history significant for benign essential hypertension, borderline diabetes, hyperlipidemia, morbid obesity with a BMI of 45.0, and strongly suggested sleep apnea, who presents to the emergency department today after admission was recommended at [facility]. Patient had presented there with complaints of 4 days of worsening dyspnea with any exertion. Also noting some central chest pressure. Initial evaluation at [facility] was negative for any evidence of acute [place]. The patient's EKG and troponin were nondiagnostic, and the patient was recommended to be transferred to [facility] for further evaluation and admission. However, the patient declined at that point and had to complete some errands at home before presenting to the ED here at [facility] this evening. The patient states there has been no significant change in the last several hours with regard to his worsening dyspnea on exertion. He does report stable central substernal chest pressure that does not radiate. The patient denies any fevers , chills. No cough. No rhinorrhea or sore throat. He denies any recent illness. Patient recently underwent bilateral total knee arthroplasty at the end of January, with a discharge on 02/13/2017. Patient reports that his knees are still sore, but there is no acute swelling or redness, and incisions have healed well per the report. The patient reports that he was flagged with a positive ROBERTO screen. He had home oxygen ordered, and an outpatient sleep study that is scheduled for this coming Thursday. The patient is anxious and concerned that he will miss his appointment, but he understands that this is necessary testing that he does not want to miss. Patient with witnessed sleep apnea. He denies any increased lower extremity edema from baseline. He denies any orthopnea. Positive PND as noted above with his sleep apnea. The patient again does have home oxygen, but apparently has not been utilizing this since he has had this available. CPAP was offered to the patient as he had episodes of hypoxia down into the 60s while falling asleep. I am unsure if the sleep study scheduled for Thursday is a split night, but this would be beneficial and patient agrees that he needs to get this study done on Thursday. REVIEW OF SYSTEMS: GENERAL: Negative except as noted above. ALLERGIES: No known drug allergies. HOME MEDICATIONS: Clonidine 0.1 mg p.o. b.i.d., metformin 1000 mg p.o. b.i.d. with meals, Lasix 40 mg p.o. daily, benazepril 30 mg p.o. daily, atorvastatin 40 mg p.o. daily. PAST MEDICAL HISTORY: Significant for hypertension, pre-diabetes, hyperlipidemia, obesity with BMI of 45, and ROBERTO. PAST SURGICAL HISTORY: Significant for bilateral total knee arthroplasty on 01/2017, thymus resection, hernia repair, hip replacement, back surgery L3 to L6. FAMILY HISTORY: Patient denies any family members with hypertension, diabetes, or other medical problems. SOCIAL HISTORY: Patient lives with his . He denies tobacco, drugs, or alcohol. CODE STATUS: Full. PHYSICAL EXAMINATION: VITAL SIGNS: Initial vitals when patient presented to [facility] earlier in the day: Blood pressure was 191/119, heart rate 91, respiratory rate 22, O2 sat 91% on room air, with a temperature of 37.2. Vitals again at [facility]: Initial 170/92, heart rate 91, respiratory rate 20, O2 sat 91% on room air, with temperature 37.3. Current vitals on the floor: Blood pressure 167/102, heart rate 81, respiratory rate 20s, O2 sat 94% to 97%, with dips down as low as 59 on 3 L by nasal cannula. This did improve after patient was placed on an OxyMask. GENERAL: No acute distress. Patient lays quietly in bed with some increased work of breathing, and has noticeable and recurrent episodes of apnea during the interview as he falls asleep regularly. HEAD: Normocephalic, atraumatic. EYES: Extraocular muscles grossly intact, but patient keeps falling asleep. Limited exam of extraocular muscle testing. Pupils are equal, round, with decreased reactivity to light bilaterally but symmetric. No scleral icterus or conjunctival injection. ENT: Mucous membranes slightly dry. No oropharyngeal erythema. Dentition intact. NECK: Supple with excessive soft tissue present. CV: Regular rate and rhythm. No murmurs, rubs, or gallops, but exam again is limited secondary to patient's body habitus. RESPIRATORY: Lungs appear clear to auscultation bilaterally, but limited secondary to body habitus. ABDOMEN: Obese, nondistended, soft, with positive bowel sounds. No tenderness to palpation noted. : No Pyle in place. No apparent suprapubic tenderness to palpation. EXTREMITIES: Patient with trace lower extremity edema and significantly notable chronic skin changes bilaterally. Bilateral knees with well-healed surgical scars. Patient with 1+ pedal pulses, limited secondary to mild edema. NEURO: Grossly nonfocal. No facial drooping. The patient when he is able to stay awake is awake, alert, and oriented x4. He moves all his extremities. PSYCH: The patient does attempt to be cooperative. He is a little bit blunt and occasionally short with his answers. LABORATORY STUDIES: Initial labs from [facility]: WBC is 8.97, H and H are 14.8 and 45.1, MCV 88.4, platelet count is 300. No bands. D-dimer was found to be 2.84. Sodium is 142, potassium is 4.1, chloride 99, CO2 is 27, anion gap 16, BUN 23, creatinine is 1.1, GFR greater than 60, glucose 188, calcium 9.8, total bilirubin 0.6, ALT is 34, AST is 17, alkaline phosphatase 139. Troponin trended is 0.022, down to 0.016 at [facility]. BTNP is 905. Total protein 6.7, albumin 3.8. IMAGING STUDIES: Report and images reviewed. Chest x-ray: Poor inspiration with compressive atelectatic changes suspected in the right lung base. Lungs are clear without infiltrates or effusions. CTA of the chest negative for PE, coronary artery disease including the left main. No evidence of pneumonia, pleural effusion, mass, or pneumothorax. Calcified left main and LAD. Heart possibly mildly enlarged, without pericardial effusion or evidence of CHF. Thoracic aorta normal without evidence of dissection. EKG from 1444 reviewed myself, showing normal sinus rhythm, PACs, Q-waves noted in the inferior leads, and borderline prolonged QT. Repeat EKG at 2157 negative for any acute changes. Q-waves in leads III and aVF. Bilateral lower extremity venous study negative for evidence of DVT or superficial venous thrombus. Calf veins not optimally evaluated secondary to patient's body habitus. ASSESSMENT AND PLAN: This 56-year-old gentleman presents with 4 days of progressive dyspnea and chest pressure. 1. Chest pain. Patient's initial evaluation negative for evidence of acute infarction. His troponins are negative and EKG without any acute changes. There are some Q-waves in the inferior leads. CTA is negative for any evidence of a PE or dissection. There is some evidence of cardiomegaly, without any pericardial effusions. He has evidence of coronary calcifications in the LAD and left main. The patient with multiple risk factors including hypertension, diabetes, and obesity. HEART score is 4 for history, age, and risk factors. The patient's score is sufficiently elevated with his risk factors that I would consider to schedule patient for stress testing tomorrow. He has bilateral knee replacements recently completed in the last several months, and given also his history of significant dyspnea he is not a candidate for treadmill stress testing at this time. We will order a dobutamine stress test with echocardiogram to further evaluate for any possibility of CHF. 2. Dyspnea and hypoxia. Differential diagnosis as noted above, including cardiac etiology, severe obstructive sleep apnea, or obesity hypoventilation syndrome with progressive symptoms. Patient already has an outpatient sleep study scheduled for this coming Thursday, tomorrow. Further evaluation with echocardiogram and stress testing has been ordered as above. Patient is currently requiring supplemental oxygen, approximately 3-4 L by OxyMask, with improvement of his oxygenation. I did offer the patient to consider use of CPAP or BiPAP, and he declines at this time. A CTA is negative for any evidence of PE or pneumonia, effusions, pericardial effusion, or dissection. Patient without any history of tobacco use reported. No evidence of COPD, but at this time I would recommend an outpatient evaluation given patient's acute change in status. 3. Benign essential hypertension. Blood pressures are acceptable at this time , slightly elevated. We will plan to resume his home medications in the morning. 4. Prediabetes. The patient's metformin will be held pending further cardiac evaluation and workup. 5. Hyperlipidemia. Resume statin when diet is advanced. 6. Morbid obesity with a BMI of 45. Mobilization and lifestyle modifications will be recommended prior to his discharge. 7. Fluid, electrolyte, nutrition. The patient will receive some IV fluids overnight while he is n.p.o. Electrolytes will be replaced p.r.n., and patient will be placed on a low carb diet after cardiac studies. Currently will be n.p.o. 8. Prophylaxis: SCDs. Anticoagulation if patient should stay additional day. 9. Code status is full. Patient desires to act as proxy if needed. 10. Disposition: Patient has been admitted to observation on the PCU unit pending findings of his studies as noted above. /[id number]/MODL MTDD
[2017-04-09 05:14] LABS: % IMMATURE GRANULYOCYTES 0.3 % (0.0-1.1); ABSOLUTE IMMATURE GRANULOCYTES 0.02 10^3/uL (0.00-0.10); ADD DIFF? NO; ADD MORPH? NO; ADD SCAN? NO; ATYPICAL LYMPHOCYTE FLAG 0 (0-99); FRAGMENT RBC FLAG 0 (0-99); HEMATOCRIT 44.5 % (40.0-51.0); HEMOGLOBIN 14.6 g/dL (13.7-17.5); LEFT SHIFT FLG 0 (0-99); LIPEMIA HEMOLYSIS FLAG 80 (0-99); MEAN CELL HEMOGLOBIN 29.7 pg (27.9-34.1); MEAN CELL HEMOGLOBIN CONCENTR. 32.8 g/dL (32.4-36.7); MEAN CELL VOLUME 90.4 fL (81.5-99.8); MEAN PLATELET VOLUME 10.3 fL (8.7-11.7); PLATELET CLUMPS FLAG 0 (0-99); PLATELET COUNT 250 10^3/uL (150-400); RED BLOOD CELL COUNT 4.92 10^6/uL (4.40-6.38); RED CELL DISTRIBUTION WIDTH 14.8 % (11.5-15.2)
[2017-04-09 05:28] LABS: ANION GAP 14 mEq/L (8-16); CALCIUM 9.4 mg/dL (8.5-10.4); CARBON DIOXIDE 28 mEq/l (22-31); CHLORIDE 103 mEq/L (97-110); GLOMERULAR FILTRATION RATE > 60; GLUCOSE 178 mg/dL (70-100); POTASSIUM 4.1 mEq/L (3.5-5.2); SODIUM 145 mEq/L (134-144)
[2017-04-09 05:38] LABS: CREATINE KINASE-MB FRACTION 2.04 ng/mL (0.00-3.19); TROPONIN I 0.014 ng/mL (0.000-0.034)
[2017-04-09] MEDS ORDERED: REGADENOSON 0.4 MG/5 ML SYR IVP ONE (11:05)
[2017-04-09] MEDS ORDERED: METHOCARBAMOL 750 MG TAB PO PRN (11:16)
[2017-04-09] MEDS ORDERED: NON-FORMULARY NEW DRUG (Metformin Hcl [Metformin 1000 Mg] 1,000 MG) PO SCH (11:16)
--- NOTE | 2017-04-09 11:37 | ASMTCASEMG ---
Living Arrangements What is your living Answers: With Other (Not Family) arrangement? Who do you live with? Type Of Residence What kind of residence do Answers: House you live in? Discharge Plan Comments Coordination Status Comments Notes: Pt is a 56 y/o man admitted for acute dyspnea and chest pressure. Anticipates that pt will d/c independent when medically stable. Pt may need o2 at time of d/c. RT will consult w/ pt. No therapies ordered at this time. CM available for changes. Plan: Independent Date Signed: 04/09/2017 11:37 AM Electronically Signed By:LYNNE Ortega
[2017-04-09] MEDS: ATORVASTATIN CALCIUM 40 MG TAB PO SCH (13:35)
[2017-04-09] MEDS: NIACIN 500 MG TAB PO SCH (13:35)
[2017-04-09] MEDS: BENAZEPRIL HCL 20 MG TAB PO SCH (13:35)
[2017-04-09] MEDS: FUROSEMIDE 40 MG TAB PO SCH ×2 (13:36→20:51)
[2017-04-09] MEDS: HYDROMORPHONE HCL 16 MG PO SCH ×2 (13:38→20:55)
--- NOTE | 2017-04-09 13:52 | CPR ---
[f rep st] NONINVASIVE CARDIAC PROCEDURE REPORT PROCEDURE: Lexiscan injection and Lexiscan MPI study. INDICATION FOR PROCEDURE: The patient with ongoing shortness of breath, unable to run on treadmill. PRE: After obtaining informed consent, ensuring patient's n.p.o. status of caffeine for greater than 12 hours, the patient was placed on electrocardiogram. Initial EKG shows sinus rhythm, noted Q-wave s in inferior leads, possible lead III and AVF, questioning possible old infarct. Patient denies any chest pain, reports continues to have mild shortness of breath since admission to hospitalization, b ut has improved. Initial blood pressure 168/101, saturating 92% on room air. INJECTION: Patient was given Lexiscan slow IV push, followed by nuclear isotope. Patient reporting within 1 minute of feeling of more shortness of breath, developing a mild cough, blood pressure did e levate up to 178/103 with injection, and heart rate increased, up to 95 beats per minute, electrocard iogram with no significant change except occasional PVC and PAC. The patient was given caffeinated b everage, and within 5 minutes, symptoms resolved. Vital signs remained stable, electrocardiogram rem ained unchanged. IMPRESSION: A 56-year-old male, admitted to the hospital with ongoing shortness of breath, with know n history of hypertension, diabetes, and chest tightness, underwent Zohreh MPI study, tolerated well, w ith mild symptoms of shortness of breath and cough with injection, which resolved with caffeinated be verage, and time. Currently vital signs are stable, no electrocardiogram changes. The patient will be sent down to Nuclear Medicine for post stress MPI imaging. /[id number]/MODL
[2017-04-09] MEDS ORDERED: metFORMIN HCL 500 MG TAB PO SCH (18:00)
--- NOTE | 2017-04-09 18:21 | HOSPPROG ---
Hospitalist Progress Note Assessment/Plan: Critical care note, greater than 50 min critical care time today DIAGNOSES: -unstable angina with chest tightness and dyspnea -13 beat run ventral her tachycardia this morning -ruled out myocardial infarction -coronary artery disease in left main and left anterior arteries confirmed by CT this scanning of the chest today -abnormal myocardial perfusion imaging, I reviewed with doctors more solid and shots. The images are no difference between rest and stress studies, however he has very patchy distribution of perfusion throughout the myocardium which in this overweight diabetic patient could be consistent with severe diffuse coronary disease -multiple coronary disease risk factors -diabetes mellitus type 2 with moderately uncontrolled sugars here now -essential hypertension on therapy but uncontrolled here at this time now -high suspicion for sleep apnea; [facility] right ventricular dilation and strain pattern on echocardiogram consistent with what appears to be significant sleep apnea -patient has severe anxiety over his situation. 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 I reviewed the case in detail with Dr. Hardik Lino and we are in agreement on the recommendations and plan for the patient I have spent greater than 50 min in 2 visits with the patient assessing his rhythm, his examination, his playground monitor, and have spent other time reviewing his nuclear medicine images with Dr. Bishop, as well as his CT scan images. PLANS: -beta-laverne is ordered because of his ventricular tachycardia. The patient was initially reluctant but after further discussion is accepting this therapy now -coronary angiography tomorrow, I have ordered NPO. 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, my review: Mainly sinus rhythm with some PACs but did have 113 beat run of ventricular tachycardia today Exam: alert oriented very anxious skin warm dry color ok Unable to assess jugular venous distention due to neck obesity resps not labored lungs severely diminished but otherwise clear BSs heart regular abd soft nondistended nontender, bowel sounds present limbs warm, no edema iv site ok Laboratory data: Troponins unremarkable Sugars running between 150 and greater than 200 TSH stable Good renal function Objective: Vital Signs Temp Pulse Resp BP Pulse Ox 36.8 C 91 20 150/79 H 90 L 04/09/17 16:29 04/09/17 16:29 04/09/17 16:29 04/09/17 16:29 04/09/17 16:29 Laboratory Results 04/09/17 04:28 04/09/17 04:28 04/08/17 04/09/17 04/10/17 06:59 06:59 06:59 Intake Total 0 450 Balance 0 450 ICD10 Worksheet Patient Problems: Problems Problem Status Onset Chest pressure Acute Dyspnea Acute ROBERTO (obstructive sleep apnea) Acute S/P total knee arthroplasty Acute
[2017-04-09] MEDS: METOPROLOL TARTRATE 25 MG TAB PO SCH ×2 (18:32→20:51)
[2017-04-09] MEDS: HYDROmorphONE/DILAUDID 4 MG TAB PO PRN ×2 (18:32→22:06)
[2017-04-09] MEDS: METHOCARBAMOL 750 MG TAB PO PRN (22:07)
[2017-04-09] MEDS: diphenhydrAMINE 25 MG CAP PO PRN (22:07)
[2017-04-10] MEDS: HYDROmorphONE/DILAUDID 4 MG TAB PO PRN ×3 (02:13→20:06)
[2017-04-10] MEDS: HYDROMORPHONE HCL 16 MG PO SCH ×2 (08:06→20:11)
[2017-04-10 09:33] LABS: CHOLESTEROL 120 mg/dL (140-220); CHOLESTEROL/HDL RATIO 3.43 RATIO (1.00-4.97); HIGH DENSITY LIPOPROTEIN 35 mg/dL (40-65); LDL/HDL RATIO 1.71 RATIO (1.00-3.64); LOW DENSITY LIPOPROTEIN 60 mg/dL (80-100); NON-HIGH DENSITY LIPOPROTEIN 85 mg/dL (90-129); TRIGLYCERIDE 128 mg/dL (40-150); VERY LOW DENSITY LIPOPROTEINS 25 mg/dL (8-25)
--- NOTE | 2017-04-10 09:35 | HOSPPROG ---
Hospitalist Progress Note Assessment/Plan: 56 yo male with DM, htn, possible ROBERTO presents with dyspnea, concerning for unstable angina Unstable angina - CAD by CT scan. EKG non-ischemic, trop neg x2. Nuc stress test with EF 45% and hypokinesis -Cont ASA, BB, statin -cath today V tac - cont BB LE edema - exam c/w venous stasis -cont diuresis -home with compression stockings ROBERTO - needs to get CPAP equipment for home use DM - Metformin held for cath. -check a1c -SSI Hypertension - fair control -cont phil, BB, clonidine Full code Dispo - cont inpt Subjective: Pt feels ok. No CP or SOB. He is anxious. NPO today, but appetite good. Objective: Vital Signs Temp Pulse Resp BP Pulse Ox 36.8 C 86 16 145/90 H 94 04/10/17 08:58 04/10/17 08:58 04/10/17 08:58 04/10/17 08:58 04/10/17 08:58 Laboratory Results 04/09/17 04:28 04/09/17 04:28 04/09/17 04/10/17 04/11/17 05:59 05:59 05:59 Intake Total 0 450 Balance 0 450 - Physical Exam Constitutional: no apparent distress Eyes: PERRL Ears, Nose, Mouth, Throat: moist mucous membranes Cardiovascular: regular rate and rhythym Respiratory: no respiratory distress, clear to auscultation Gastrointestinal: normoactive bowel sounds, soft, non-tender abdomen Skin: warm Musculoskeletal: other (b/l brawny edema ) Neurologic: AAOx3 Psychiatric: interacting appropriately ICD10 Worksheet Patient Problems: Problems Problem Status Onset Chest pressure Acute Dyspnea Acute ROBERTO (obstructive sleep apnea) Acute S/P total knee arthroplasty Acute
[2017-04-10] MEDS: FUROSEMIDE 40 MG TAB PO SCH ×2 (09:49→20:11)
[2017-04-10] MEDS: NIACIN 500 MG TAB PO SCH (09:50)
[2017-04-10] MEDS ORDERED: D50W 25 GM/50 ML SYR IVP PRN (09:50)
[2017-04-10] MEDS: BENAZEPRIL HCL 20 MG TAB PO SCH (09:50)
[2017-04-10] MEDS: ATORVASTATIN CALCIUM 40 MG TAB PO SCH (09:50)
[2017-04-10] MEDS: ASCORBIC ACID 500 MG TAB PO SCH (09:50)
[2017-04-10] MEDS: METHOCARBAMOL 750 MG TAB PO PRN (09:58)
--- NOTE | 2017-04-10 10:41 | PDCARCONS ---
Cardiology Consult Reason for Consult: Dyspnea with numerous cardiovascular risks and equivocal MPI testing Chief Complaint: Dyspnea Requesting Physician: Hospitalist team History of Present Illness: Patient is a 56 y/o male with history of DM, HTN, HLP, ROBERTO (with pending start to CPAP use), and obesity, who presented to PCP office with complaints of dyspnea. At that time, approximately four days of dyspnea had been noted. Patient has been working to have a formal sleep study given the issues that he has noted with sleeping. Patient knows that he has ROBERTO, and knows that he should be using CPAP, but has been unable to facilitate the testing given work issues. The patient was admitted yesterday, and overnight hospitalist recommended Dobutamine stress echo. Given body habitus (obesity), the stress echo not as likely to be diagnostic. We opted to have echocardiogram and zohreh MPI (patient with relatively recent bilateral knee surgery. Echocardiogram was reportedly performed prior to the knee surgery at [facility], and attempts to get this test report were undertaken yesterday (rather than repeating a recently performed study). Zohreh was performed yesterday afternoon with notable reduction in systolic function appreciated (45%). No ischaemia or infarction patterns were noted. CT to rule out pulmonary embolic given the knee surgery and the dyspnea, did not reveal thrombus, but did reveal LM and LAD calcifications. Today, the patient is feeling well. Long talk last night between patient and hospitalist about the need to have further invasive cardiovascular testing ( angiography). Risks and benefits of this procedure were discussed again today. No cardiovascular complaints of chest pains or pressure. PND and orthopnea are present. Chief complaint continues to be dyspnea. No fevers or chills. Remainder of the 12 point review of systems was unremarkable. History Information - Allergies/Home Medication List Allergies/Adverse Reactions: No Known Allergies Allergy (Verified 04/08/17 21:30) Home Medications: Ascorbic Acid [Vitamin C 500 mg (*)] 500 mg PO DAILY 04/09/17 [Last Taken Unknown] Benazepril HCl [Lotensin (*)] 40 mg PO DAILY 04/09/17 [Last Taken 04/08/17] Furosemide [Lasix 40 MG (*)] 40 mg PO BID 04/09/17 [Last Taken 04/08/17 09:00] HYDROmorphone HCL [Dilaudid 4 mg (*)] 8 mg PO Q4HRS PRN 12/14/17 [Last Taken 01/11] HYDROmorphone HCL [Hydromorphone ER] 16 mg PO BID 04/09/17 [Last Taken 04/04/17] Methocarbamol [Robaxin 750 mg (*)] 750 mg PO Q8HRS PRN 04/09/17 [Last Taken Unknown] Niacin [Niacin 500 mg (*)] 500 mg PO DAILY 04/09/17 [Last Taken Unknown] I have personally reviewed and updated: family history, medical history, social history, surgical history Past Medical History: - Past Medical History coronary artery disease, diabetes type 2, hypertension, hyperlipidemia Additional medical history: ROBERTO. Obesity - Surgical History Additional surgical history: bilateral knee surgeries - Family History Positive for: non-pertinent - Social History Smoking Status: Never smoked Alcohol Use: None Drug Use: None Cardiac History - Cardiac History Past Cardiac History: CAD Cardiac Risk Factors: hypertension (>140/90), lipidemia, diabetes mellitus, male Timing/Duration: Weeks Severity: moderate Severity Scale: 5 Location: substernal Activities at Onset: sleep Modifying Factors: improves with: oxygen Associated Symptoms: shortness of breath GAETANO Risk Evaluation age greater or equal to 65: no greater or equal to 3 CAD risk factors: yes known CAD(stenosis greater or eqaul to 50%): no ASA use in past 7 days: yes severe angina(greater or equal to 2 episodes in 24hrs): no EKG ST changes greater or equal to 0.5mm: no positive cardiac marker: no Total Score: 2 GAETANO Score: 8.3% risk Physical Exam Physical Exam: Temp Pulse Resp BP Pulse Ox 36.8 C 86 16 145/90 H 94 04/10/17 08:58 04/10/17 08:58 04/10/17 08:58 04/10/17 08:58 04/10/17 08:58 O2 (L/minute) 7 Constitutional: no apparent distress, appears nourished, obese Eyes: PERRL, EOMI Ears, Nose, Mouth, Throat: moist mucous membranes, hearing normal, ears appear normal Cardiovascular: regular rate and rhythym, no murmur, rub, or gallop, No diastolic murmur, No JVD Peripheral Pulses: 2+: dorsalis-pedis (R), dorsalis-pedis (L) Respiratory: no respiratory distress, no rales or rhonchi, clear to auscultation Gastrointestinal: normoactive bowel sounds Skin: warm, no rashes or abrasions Musculoskeletal: full muscle strength, no muscle tenderness, normal joint ROM Neurologic: AAOx3, sensation intact bilaterally, CN II-XII Intact Psychiatric: interacting appropriately, not anxious, not encephalopathic Lab and Imaging 04/09/17 04:28 04/09/17 04:28 WBC 7.86 10^3/uL (3.80-9.50) 04/09/17 04:28 RBC 4.92 10^6/uL (4.40-6.38) 04/09/17 04:28 Hgb 14.6 g/dL (13.7-17.5) 04/09/17 04:28 Hct 44.5 % (40.0-51.0) 04/09/17 04:28 MCV 90.4 fL (81.5-99.8) 04/09/17 04:28 MCH 29.7 pg (27.9-34.1) 04/09/17 04:28 MCHC 32.8 g/dL (32.4-36.7) 04/09/17 04:28 RDW 14.8 % (11.5-15.2) 04/09/17 04:28 Plt Count 250 10^3/uL (150-400) D 04/09/17 04:28 MPV 10.3 fL (8.7-11.7) 04/09/17 04:28 Neut % (Auto) 76.0 % (39.3-74.2) H 04/09/17 04:28 Lymph % (Auto) 13.5 % (15.0-45.0) L 04/09/17 04:28 Alexander % (Auto) 8.4 % (4.5-13.0) 04/09/17 04:28 Eos % (Auto) 0.9 % (0.6-7.6) 04/09/17 04:28 Baso % (Auto) 0.9 % (0.3-1.7) 04/09/17 04:28 Nucleat RBC Rel Count 0.0 % (0.0-0.2) 04/09/17 04:28 Absolute Neuts (auto) 5.98 10^3/uL (1.70-6.50) 04/09/17 04:28 Absolute Lymphs (auto) 1.06 10^3/uL (1.00-3.00) 04/09/17 04:28 Absolute Monos (auto) 0.66 10^3/uL (0.30-0.80) 04/09/17 04:28 Absolute Eos (auto) 0.07 10^3/uL (0.03-0.40) 04/09/17 04:28 Absolute Basos (auto) 0.07 10^3/uL (0.02-0.10) 04/09/17 04:28 Absolute Nucleated RBC 0.00 10^3/uL (0-0.01) 04/09/17 04:28 Immature Gran % 0.3 % (0.0-1.1) 04/09/17 04:28 Immature Gran # 0.02 10^3/uL (0.00-0.10) 04/09/17 04:28 Sodium 145 mEq/L (134-144) H 04/09/17 04:28 Potassium 4.1 mEq/L (3.5-5.2) 04/09/17 04:28 Chloride 103 mEq/L (97-110) 04/09/17 04:28 Carbon Dioxide 28 mEq/l (22-31) 04/09/17 04:28 Anion Gap 14 mEq/L (8-16) 04/09/17 04:28 BUN 18 mg/dL (7-23) 04/09/17 04:28 Creatinine 1.0 mg/dL (0.7-1.3) 04/09/17 04:28 Estimated GFR > 60 04/09/17 04:28 Glucose 178 mg/dL (70-100) H 04/09/17 04:28 Calcium 9.4 mg/dL (8.5-10.4) 04/09/17 04:28 Magnesium 2.0 mg/dL (1.6-2.3) 04/09/17 04:28 Creatine Kinase 88 IU/L (0-224) 04/09/17 04:28 CK-MB (CK-2) Fraction 2.04 ng/mL (0.00-3.19) 04/09/17 04:28 Troponin I 0.014 ng/mL (0.000-0.034) 04/09/17 04:28 Triglycerides 128 mg/dL (40-150) 04/10/17 08:04 Cholesterol 120 mg/dL (140-220) L 04/10/17 08:04 Cholesterol Risk Factr 0.5 (0.2-1.0) 04/10/17 08:04 LDL Cholesterol, Calc 60 mg/dL (80-100) L 04/10/17 08:04 LDL Risk Factor 0.8 (0.2-1.0) 04/10/17 08:04 VLDL Cholesterol 25 mg/dL (8-25) 04/10/17 08:04 Non-HDL Cholesterol 85 mg/dL (90-129) L 04/10/17 08:04 HDL Cholesterol 35 mg/dL (40-65) L 04/10/17 08:04 LDL/HDL Ratio 1.71 RATIO (1.00-3.64) 04/10/17 08:04 Cholesterol/HDL Ratio 3.43 RATIO (1.00-4.97) 04/10/17 08:04 TSH 0.482 uIU/mL (0.465-4.680) 04/09/17 04:28 EKG Interpretation: Positive for: normal sinsus rhythm Telemetry: normal sinus rhythm A/P Assessment: Patient is a 56 y/o male with obesity, ROBERTO, HTN, HLP, DM, and CAD (by CT scan), who presented to [facility] after being seen by PCP with complaints of dyspnea. No cardiac biomarker elevation was noted. No ST/T wave changes appreciated. Stress testing with reduction in LVEF but no appreciable ischaemia or infarction patterns noted. Concerns given the symptoms and the MPI results for balanced multi vessel disease. Recommendation for angiography (via wrist given anatomy) to better assess the patient's degree of CAD. Plan: Angiography this afternoon Would aggressively treat DM, HTN, HLP, and noted CAD CPAP is pending assessment with formal sleep study Diet low in cholesterol and sat fat and weight loss with dietary changes and regular exercise is recommended.
[2017-04-10] MEDS: INSULIN LISPRO 100 UNIT/ML SC SCH ×2 (11:35→20:00)
[2017-04-10] MEDS ORDERED: NS 1,000 ML IV ONE (11:58)
[2017-04-10] MEDS ORDERED: DIAZEPAM 5 MG TAB PO ONE (11:58)
[2017-04-10] MEDS ORDERED: FAMOTIDINE 20 MG TAB PO ONE (11:58)
[2017-04-10] MEDS ORDERED: diphenhydrAMINE 25 MG CAP PO ONE ×2 (11:58→12:37)
[2017-04-10] MEDS ORDERED: ASPIRIN EC 325 MG TAB PO ONE ×2 (11:58→12:37)
--- NOTE | 2017-04-10 12:26 | CPEKG ---
Heart Rate: 83 RR Interval: 723 P-R Interval: 160 QRSD Interval: 90 QT Interval: 384 QTC Interval: 452 P [place]: 56 QRS [place]: -9 T Wave [place]: 40 EKG Severity - OTHERWISE NORMAL ECG - EKG Impression: SINUS RHYTHM EKG Impression: ATRIAL PREMATURE COMPLEX Electronically Signed By: Guerita Stewart 10-Apr-2017 13:40:11
[2017-04-10] MEDS ORDERED: LR 1,000 ML IV ONE (12:30)
[2017-04-10] MEDS: ASPIRIN EC 81 MG TAB PO SCH (12:32)
[2017-04-10] MEDS ORDERED: fentaNYL 100 MCG/2 ML INJ ONE ×2 (12:35→15:25)
[2017-04-10] MEDS ORDERED: LIDOCAINE 1% 300 MG/30 ML SDV ONE (12:35)
[2017-04-10] MEDS ORDERED: MIDAZOLAM 2 MG/2 ML VIAL ONE ×2 (12:36→15:25)
[2017-04-10] MEDS ORDERED: HEPARIN 10,000 UNIT/10 ML MDV ONE (12:36)
[2017-04-10] MEDS ORDERED: VERAPAMIL 5 MG/2 ML VIAL ONE (12:36)
[2017-04-10] MEDS ORDERED: FAMOTIDINE 20 MG TAB ONE (12:37)
[2017-04-10] MEDS ORDERED: DIAZEPAM 5 MG TAB ONE (12:38)
[2017-04-10 12:44] LABS: % IMMATURE GRANULYOCYTES 0.3 % (0.0-1.1); ABSOLUTE IMMATURE GRANULOCYTES 0.03 10^3/uL (0.00-0.10); ADD DIFF? NO; ADD MORPH? NO; ADD SCAN? NO; ATYPICAL LYMPHOCYTE FLAG 0 (0-99); FRAGMENT RBC FLAG 0 (0-99); HEMATOCRIT 45.6 % (40.0-51.0); HEMOGLOBIN 14.9 g/dL (13.7-17.5); LEFT SHIFT FLG 0 (0-99); LIPEMIA HEMOLYSIS FLAG 80 (0-99); MEAN CELL HEMOGLOBIN CONCENTR. 32.7 g/dL (32.4-36.7); MEAN CELL VOLUME 88.9 fL (81.5-99.8); MEAN PLATELET VOLUME 9.6 fL (8.7-11.7); PLATELET CLUMPS FLAG 0 (0-99); PLATELET COUNT 249 10^3/uL (150-400); RED BLOOD CELL COUNT 5.13 10^6/uL (4.40-6.38); RED CELL DISTRIBUTION WIDTH 14.8 % (11.5-15.2)
[2017-04-10 12:53] LABS: INR 1.09 (0.83-1.16); PROTIME(PATIENT) 14.3 SEC (12.0-15.0)
[2017-04-10 13:37] LABS: ANION GAP 11 mEq/L (8-16); CALCIUM 9.6 mg/dL (8.5-10.4); CARBON DIOXIDE 29 mEq/l (22-31); CHLORIDE 101 mEq/L (97-110); CHOLESTEROL 128 mg/dL (140-220); CHOLESTEROL/HDL RATIO 3.28 RATIO (1.00-4.97); CREATININE 0.9 mg/dL (0.7-1.3); GLOMERULAR FILTRATION RATE > 60; GLUCOSE 158 mg/dL (70-100); HIGH DENSITY LIPOPROTEIN 39 mg/dL (40-65); LDL/HDL RATIO 1.62 RATIO (1.00-3.64); LOW DENSITY LIPOPROTEIN 63 mg/dL (80-100); MAGNESIUM 1.9 mg/dL (1.6-2.3); NON-HIGH DENSITY LIPOPROTEIN 89 mg/dL (90-129); POTASSIUM 4.1 mEq/L (3.5-5.2); SODIUM 141 mEq/L (134-144); TRIGLYCERIDE 131 mg/dL (40-150); VERY LOW DENSITY LIPOPROTEINS 26 mg/dL (8-25)
[2017-04-10 13:42] LABS: HEMOGLOBIN A1C 8.6 % (4.0-6.0)
--- NOTE | 2017-04-10 15:23 | PDPROPOC ---
Sedation Plan of Care Sedation Plan of Care: vital signs stable, mental status noted, patient educated of risks, benefits, alternatives, patient can tolerate sedation ASA Classification: ASA 2 Planned drugs: fentanyl, midazolam Mallampati Score: Class 3 Mallampati Reference Image: Patient passed 3-3-2 rule?: Yes
--- NOTE | 2017-04-10 15:23 | PDHPUP ---
History & Physical Update H&P update statement: This history and physical update is based on an assessment of the patient which was completed after admission or registration (within 24 hours), but prior to the surgery/procedure. H&P update: H&P reviewed & patient examined, no change in patient's condition since H&P completed
[2017-04-10] MEDS ORDERED: IOPAMIDOL (ISOVUE-370) 150 ML BTL IV ONE (15:53)
[2017-04-10] MEDS ORDERED: ATROPINE SULFATE 1 MG/10 ML SYR IVP PRN (16:16)
--- NOTE | 2017-04-10 16:34 | PDDXCAT ---
Diagnostic Cath Note - . 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 LAD: Large caliber with mild irregularities. LCX: Large caliber with mild irregularities; dominant. RCA: Non-dominant; 20-30% mid-RCA. EDP: 20 mmHg LVEF: 55% Wall motion: Normal Complications: None Estimated blood loss: <50ml Closure method: TR Band Assessment: 1) Normal left ventricular systolic function. 2) Mild coronary atherosclerosis. Plan: Aggressive control of all modifiable risk factors. He is at target for LDL on his current statin dosage. Recent echocardiogram at [facility] at [facility] demonstrated LVEF 55-60%. No significant valvular heart disease. Moderate right-sided chamber enlargement. Estimated PA systolic pressure 23 mmHg. However, cannot be certain of the accuracy of this assessment. Suspect that he may have had limited visibility and Doppler envelopes secondary to body habitus. Suspect he has chronic cor pulmonale. Will check BNP. Patient Problems: Problems Problem Status Onset Chest pressure Acute Dyspnea Acute ROBERTO (obstructive sleep apnea) Acute S/P total knee arthroplasty Acute
[2017-04-10] MEDS: METOPROLOL TARTRATE 25 MG TAB PO SCH (20:05)
--- NOTE | 2017-04-11 00:04 | PDMN ---
Medical Necessity Medical necessity: Patient meets INPT criteria per physician note and MCG M-40 Angina (unstable angina, CAD by CT scan; nuclear stress test w/ EF 45% and hypokinesis; required ongoing diuresis and cardiac cath; LOS > 2 midnights for same.)
[2017-04-11] MEDS: HYDROmorphONE/DILAUDID 4 MG TAB PO PRN ×2 (00:15→08:12)
[2017-04-11] MEDS: diphenhydrAMINE 25 MG CAP PO PRN (00:15)
[2017-04-11] MEDS: METHOCARBAMOL 750 MG TAB PO PRN ×2 (00:16→08:12)
[2017-04-11 07:01] VITALS: BP 143/97; PULSE 87; RESP 16; TEMP 98.1; O2SAT 92
[2017-04-11] MEDS: INSULIN LISPRO 100 UNIT/ML SC SCH (08:08)
[2017-04-11] MEDS: FUROSEMIDE 40 MG TAB PO SCH (08:10)
[2017-04-11] MEDS: BENAZEPRIL HCL 20 MG TAB PO SCH (08:10)
[2017-04-11] MEDS: ATORVASTATIN CALCIUM 40 MG TAB PO SCH (08:10)
[2017-04-11] MEDS: METOPROLOL TARTRATE 25 MG TAB PO SCH (08:11)
[2017-04-11] MEDS: ASCORBIC ACID 500 MG TAB PO SCH (08:11)
[2017-04-11] MEDS: ASPIRIN EC 81 MG TAB PO SCH (08:11)
[2017-04-11] MEDS: NIACIN 500 MG TAB PO SCH (08:11)
[2017-04-11] MEDS: HYDROMORPHONE HCL 16 MG PO SCH (08:12)
--- NOTE | 2017-04-11 14:45 | ASDISCHSUM ---
Discharge Information Plan Status:Home with No Needs Medically Cleared to Leave: Discharge Date:04/11/2017 09:55 AM CM D/C Disposition:Home, Routine, Self-Care ADT D/C Disposition:Home, Routine, Self-Care Projected Discharge Date:04/11/2017 09:55 AM Transportation at D/C:Family Discharge Delay Reason: Follow-Up Date:04/11/2017 09:55 AM Discharge Slot: Final Diagnosis: Placement Information Patient Contact Information Contact Name:DANILO Relationship:Other Address:[address] [place] [address] City:[facility] Phone: [facility]/Zip Code:[place] [address] Email: Financial Information Financial Class:HMO and PPO Plans Primary Plan Desc: OUT OF STATE PPO Primary Plan Number:[id number] Secondary Plan Desc: Secondary Plan Number: Assessment Information [facility] Initial CM Assessment Living Arrangements What is your living Answers: With Other (Not Family) arrangement? Who do you live with? Type Of Residence What kind of residence do Answers: House you live in? Discharge Plan Comments Coordination Status Comments Notes: Pt is a 56 y/o man admitted for acute dyspnea and chest pressure. Anticipates that pt will d/c independent when medically stable. Pt may need o2 at time of d/c. RT will consult w/ pt. No therapies ordered at this time. CM available for changes. Plan: Independent Date Signed: 04/09/2017 11:37 AM Electronically Signed By:LYNNE Ortega Intervention Information
--- NOTE | 2017-04-12 05:48 | GDS ---
[f rep st] DISCHARGE SUMMARY DISCHARGE DIAGNOSES: 1. Dyspnea in the setting of obstructive sleep apnea and obesity hypoventilation syndrome. 2. Coronary artery disease. 3. Obstructive sleep apnea. 4. Ventricular tachycardia. 5. Diabetes mellitus. 6. Hypertension. 7. Lower extremity edema. CONSULTANTS: Hardik Lino MD, cardiology. PROCEDURES: 1. Myocardial perfusion nuclear medicine scan April 09, 2017, showed hypokinesis with an ejection fraction of 45%. No convincing evidence of stress-induced ischemia or infarct. 2. Left heart catheterization on April 10, 2017, showed normal left ventricular systolic function with mild coronary atherosclerosis, mild irregularities of the coronary artery disease, and 20-30% m id-RCA occlusive disease without percutaneous intervention. HISTORY: For details please see the history and physical dated April 09, 2017. In brief, the malia og is a 56-year-old male with a history of hypertension, hyperlipidemia, diabetes, and severe obesi ty, along with suspected sleep apnea, who presents to the emergency department with dyspnea on exerti on. He was admitted to the hospital for further evaluation. HOSPITAL COURSE: The patient was admitted to the cardiac telemetry unit. A CT pulmonary angiogram o f the chest was negative for pulmonary embolism, though coronary artery disease of the left main jania ry was noted. There was no evidence of DVT on lower extremity ultrasound. He had negative troponins , though some Q-waves were noted in his inferior leads and EKG. Given his multiple risk factors, he underwent inpatient stress testing and ultimately had angiogram performed with no need for PCI. It i s suspected his severe obstructive sleep apnea combined with obesity hypoventilation is contributing to his dyspnea. He has plans to obtain CPAP equipment today upon discharge. His coronary artery dis ease is managed medically with aspirin, atorvastatin, and metoprolol. He is also continued on Lasix and an MONALISA inhibitor. His metformin is held for 72 hours due to his recent heart cath and he is advi sed to resume this 3 days after discharge. DISPOSITION: Patient is discharged home in stable condition. FOLLOWUP: 1. Dr. Belinda Siu, primary care. 2. Dr. Hardik Lino, cardiology. DISCHARGE MEDICATIONS: Please see [facility] for completed outpatient medication list. New medication list on discharge includes aspirin 81 mg p.o. daily #90 no refills, metoprolol 25 mg p.o. twice lizette y #60 no refills. He will continue all other outpatient medications as previously prescribed includi ng atorvastatin, clonidine, metformin, niacin, Robaxin, furosemide, and benazepril. In addition, he is instructed to follow up with his pain medicine specialist. He did request a prescription for hydr omorphone, which he takes 16 mg extended release b.i.d., along with 8 mg p.o. q.4 hours. I respectfu lly declined this request and advise he follow up with his pain specialist for any further prescripti on refills of his opiates. /[id number]/MODL
== END 2017-04-11 09:55 | disposition home or self-care (01) | DRG 155 ==
LOC: INTOOBSV 22:10 → F2W 04-09 00:15 → OBSVTOIN 04-10 18:39
PROVIDERS: ADMIT Family Medicine; ATTEND Hospitalist
PROC: 4A023N7 Measurement of Cardiac Sampling and Pressure, Left Heart, Percutaneous Approach (ICD-10-PCS; principal; 2017-04-10)
PROC: B2151ZZ Fluoroscopy of Left Heart using Low Osmolar Contrast (ICD-10-PCS; principal; 2017-04-10)
PROC: B2111ZZ Fluoroscopy of Multiple Coronary Arteries using Low Osmolar Contrast (ICD-10-PCS; principal; 2017-04-10)
DX: G47.33 Obstructive sleep apnea (adult) (pediatric) (principal); E66.2 Morbid (severe) obesity with alveolar hypoventilation; Z68.42 Body mass index [BMI] 45.0-49.9, adult; I25.10 Atherosclerotic heart disease of native coronary artery without angina pectoris; I47.2 Ventricular tachycardia; R60.0 Localized edema; I27.23 Pulmonary hypertension due to lung diseases and hypoxia; R73.03 Prediabetes; I10 Essential (primary) hypertension; Z96.653 Presence of artificial knee joint, bilateral
CPT/HCPCS: A9500; C1769; G0378; J1644; J1815; J2250; J2785; J3010; Q9967